=== PATIENT | male | born 1955 | race Caucasian/White ===

== ENCOUNTER → 2017-02-17 10:59 | Outpatient (CLI) | payer MEDICARE, MEDICAID, SELFPAY ==
--- NOTE | 2017-02-17 11:36 | XR_ITS ---
XR chest 2V HISTORY: ITS.REASON: enlarged lympnode on left clavicle ORDERING PHYSICIAN: Basim Sheth PATIENT AGE: 61 years COMPARISON: 01/19/2017 FINDINGS: The cardiomediastinal silhouette and pulmonary vascularity are within normal limits. The lungs are clear without infiltrates, suspicious nodules, or pleural effusions. There is some increased density noted over the left upper quadrant medially probably due to summation artifact No acute bony abnormalities. IMPRESSION: No acute finding CT may be of further value for lymphadenopathy of clinically warranted
[2017-02-17 13:57] LABS: Basophils % 0.7 % (0.1-2.0); Eosinophils # 0.3 K/mm3 (0.0-0.4); Eosinophils % 5.5 % (0.1-12.0); Hematocrit 48.6 % (42.0-52.0); Lymphocytes # 2.2 K/mm3 (0.7-4.5); Lymphocytes % 39.4 K/mm3 (10-50); Mean Corpuscular HGB Conc 32.9 g/dL (31.8-35.4); Mean Corpuscular Hemoglobin 27.9 pg (27.0-31.2); Mean Corpuscular Volume 84.9 fl (80-94); Mean Platelet Volume 11.1 fl (7.4-10.4); Monocytes # 0.4 K/mm3 (0.1-1.0); Neutrophils # 2.6 K/mm3 (1.8-7.8); Neutrophils % 47.4 % (37.0-80.0); Platelet Count 192 K/mm3 (142-424); Red Blood Count 5.73 M/mm3 (4.60-6.20); Red Cell Distribution Width 13.7 % (11.5-17.5); White Blood Count 5.6 K/mm3 (4.8-10.8)
[2017-02-17 14:18] LABS: Alanine Aminotransferase 18 U/L (12-78); Albumin/Globulin Ratio 1.3 (1.1-1.8); Alkaline Phosphatase 83 U/L (46-116); Anion Gap 14.8 mEq/L (5-15); Aspartate Amino Transferase 17 U/L (15-37); Bilirubin,Total 0.5 mg/dL (0.2-1.0); Blood Urea Nitrogen 8 mg/dL (7-18); Calcium 9.1 mg/dL (8.5-10.1); Carbon Dioxide 24 mmol/L (21.0-32.0); Chloride 103 mmol/L (98-107); Chol/HDL Ratio 4.4 (1-3.5); Cholesterol 176 mg/dL (140-200); Creatinine,Serum 1.19 mg/dL (0.70-1.30); Estimated Glomerular Filt Rate > 60 ml/min (>60); GFR (African American) > 60 ML/MIN (>60); Glucose 138 mg/dL (74-106); HDL Cholesterol 40 mg/dL (27-67); LDL Cholesterol 85 mg/dL (0-130); Potassium 3.8 mmoL/L (3.5-5.1); Sodium 138 mmol/L (136-145); Triglycerides 255 mg/dL (30-200); VLDL Cholesterol 51 mg/dL (0-40)
== END ==
PROVIDERS: PCP Nurse Practitioner Family; Visit Provider Nurse Practitioner Family
DX: E03.9 Hypothyroidism, unspecified (principal); Z09 Encounter for follow-up examination after completed treatment for conditions other than malignant neoplasm; E78.5 Hyperlipidemia, unspecified; R59.1 Generalized enlarged lymph nodes
CPT/HCPCS: 71046; 80053; 80061; 84439; 84443; 85025

== ENCOUNTER → 2017-05-19 12:00 | Outpatient (CLI) | payer MEDICARE, MEDICAID, SELFPAY ==
[2017-05-19 14:32] LABS: Hemoglobin A1C 6.2 % (0.0-7.0)
[2017-05-19 15:09] LABS: Free T4 (Free Thyroxine) 1.39 ng/dl (0.76-1.46); Thyroid Stimulating Hormone 1.65 uIU/ml (0.358-3.740)
== END ==
PROVIDERS: Visit Provider Nurse Practitioner Family
DX: R73.01 Impaired fasting glucose (principal); E03.9 Hypothyroidism, unspecified
CPT/HCPCS: 36415; 83036; 84439; 84443

== ENCOUNTER → 2017-05-27 09:41 | Outpatient (CLI) | payer MEDICARE, MEDICAID, SELFPAY ==
--- NOTE | 2017-05-27 09:43 | US_ITS ---
US thyroid COMPARISON: None HISTORY: Difficulty swallowing for 2 months TECHNIQUE: Targeted ultrasound the thyroid FINDINGS: The isthmus of the gland appears normal measuring 0.3 cm in width. The right lobe measures 2.5 x 2.0 x 4.1 cm. There is an isoechoic solid nodule upper pole right lobe measures 1.4 x 1.1 x 1.5 cm. There is a complex but primarily solid nodule posterior aspect of the mid pole right lobe measuring 2.3 x 1.4 x 1.5 cm. This could in fact represent the parathyroid gland in view of its location. The left lobe measures 2.2 x 1.5 x 3.9 cm. There is a diffusely heterogenic appearance to the left lobe with multiple small cystic-appearing areas IMPRESSION: Mild to borderline enlarged thyroid gland with multinodular appearance, question parathyroid gland versus complex solid nodule right lobe.
== END ==
PROVIDERS: Family Provider Nurse Practitioner Family; PCP Nurse Practitioner Family; Visit Provider Nurse Practitioner Family
DX: E04.9 Nontoxic goiter, unspecified (principal)
CPT/HCPCS: 76536

== ENCOUNTER → 2017-06-09 16:08 | Outpatient (CLI) | payer MEDICARE, MEDICAID, SELFPAY ==
[2017-06-11 20:12] LABS: Calcium, Ionized 5.3 mg/dL (4.5-5.6); Parathyroid Hormone Intact 39 pg/mL (15-65); Thyroid Peroxidase Antibodies 479 IU/mL (0-34)
[2017-06-15 06:12] LABS: Calcitonin 3.6 pg/mL (0.0-8.4)
[2017-06-15 06:14] LABS: Thyroid Stimulating Immunoglob <0.10 IU/L (0.00-0.55)
== END ==
PROVIDERS: Visit Provider Otolaryngology
DX: E04.1 Nontoxic single thyroid nodule (principal); E04.9 Nontoxic goiter, unspecified; R13.10 Dysphagia, unspecified
CPT/HCPCS: 36415; 82308; 82330; 83520; 83970; 86376

== ENCOUNTER → 2017-06-17 09:50 | Outpatient (CLI) | payer MEDICARE, MEDICAID, SELFPAY ==
--- NOTE | 2017-06-17 09:51 | FL_ITS ---
EXAM: Barium swallow/esophagram. INDICATION: ITS.REASON: diff swallowing x3 mths ORDERING PHYSICIAN: Richie Nelson MD PATIENT AGE: 61 years TECHNIQUE: In the upright position the patient was observed to swallow barium in both the AP and lateral view. The cervical esophagus was examined under fluoroscopy with images obtained. The patient was then placed prone in the right anterior oblique position and was observed to swallow barium with Valsalva technique . FLUOROSCOPY TIME: 42 seconds FINDINGS: The cervical esophagus is midline. Posterior fixation device is noted at C5-C6 at the facets. No esophageal mass or mucosal body evident. There is a small sliding hiatal hernia with a non constricting Schatzki's ring. Along the dorsal aspect of the Schatzki's ring there is a small area of pulling of contrast. This could be related to a small shallow ulcer. IMPRESSION: 1. Small sliding hiatal hernia with possible small shallow ulcer along the posterior aspect just distal to the Schatzki's ring. Upper endoscopy may confirm.
== END ==
PROVIDERS: Family Provider Nurse Practitioner Family; PCP Nurse Practitioner Family; Visit Provider Otolaryngology
DX: R13.10 Dysphagia, unspecified (principal)
CPT/HCPCS: 74220

== ENCOUNTER → 2017-06-20 07:46 | Outpatient (CLI) | payer MEDICARE, MEDICAID, SELFPAY ==
--- NOTE | 2017-06-20 07:48 | US_ITS ---
US biopsy guidance, US thyroid, US organ site (thyroid) Ordering Physician: Richie Nelson MD Patient Age: 61 years: Male HISTORY: ITS.REASON: multi nodular goiter right Thyroid nodule TECHNIQUE: Ultrasound right lobe thyroid along with subsequent ultrasound-guided FNA biopsy mw FINDINGS AND PROCEDURE: ======= ULTRASOUND right lobe thyroid; The elongated hypoechoic mildly inhomogeneous mass is identified along the posterior aspect right lobe. On these preliminary images it appears to be quite long measuring just over 3 cm in length X up to nearly 1 cm AP. Actually this appears to be similar I believe to the previous of April 2017 images (panel #36) from recent exam . There is suggestion of possible cleavage plane between the thyroid and this mass and thus it could be parathyroid nodule versus thyroid versus other etiology. .These images also determined the best approach for access to perform aspiration biopsy of this nodule. Scanning by Dr. Jesus ====== ULTRASOUND-GUIDED FNA BIOPSY nodule along posterior aspect right lobe thyroid. Following sterile preparation as well as local skin, and cautious deeper placement of Xylocaine anesthetic . I would also the patient received Xanax 1 mg and Lortab5 Prior to the procedure for comfort and mild sedation. Under ultrasound guidance the biopsy needle, was advanced to the nodule and positioned. Needle tip was observed and confirm passing with tip within nodule on each of 3 multipleFNA biopsies passes. A 25-gauge needle utilized. Adequate FNA specimen material obtained and submitted forto cytopathology. Patient tolerated procedure well. IMPRESSION: ----- 1. 3 FNA passes performed with with FNA biopsy & aspiration of the elongated thyroid nodule/ mass which resides along posterior right lobe of thyroid CYTOPATHOLOGY REPORT: Negative for malignant cells features compatible with lymphocytic thyroiditis
== END ==
PROVIDERS: Family Provider Nurse Practitioner Family; PCP Nurse Practitioner Family; Visit Provider Otolaryngology
DX: E04.1 Nontoxic single thyroid nodule (principal)
CPT/HCPCS: 10022; 76536; 76942; 88173

== ENCOUNTER → 2017-08-15 11:31 | Outpatient (REF) | payer MEDICARE, MEDICAID, SELFPAY ==
[2017-08-15 17:36] LABS: Basophils % 0.6 % (0.1-2.0); Eosinophils # 0.3 K/mm3 (0.0-0.4); Eosinophils % 4.6 % (0.1-12.0); Hematocrit 45.4 % (42.0-52.0); Hemoglobin 14.5 g/dL (14.1-18.0); Lymphocytes # 1.9 K/mm3 (0.7-4.5); Lymphocytes % 34.7 K/mm3 (10-50); Mean Corpuscular HGB Conc 31.9 g/dL (31.8-35.4); Mean Corpuscular Volume 84.7 fl (80-94); Mean Platelet Volume 11.3 fl (7.4-10.4); Monocytes # 0.3 K/mm3 (0.1-1.0); Monocytes % 5.8 % (1.7-9.3); Neutrophils % 54.3 % (37.0-80.0); Platelet Count 175 K/mm3 (142-424); Red Blood Count 5.36 M/mm3 (4.60-6.20); Red Cell Distribution Width 13.5 % (11.5-17.5); White Blood Count 5.5 K/mm3 (4.8-10.8)
[2017-08-15 18:24] LABS: Alanine Aminotransferase 21 U/L (12-78); Albumin Level 3.8 gm/dL (3.4-5.0); Albumin/Globulin Ratio 1.2 (1.1-1.8); Alkaline Phosphatase 77 U/L (46-116); Aspartate Amino Transferase 18 U/L (15-37); Bilirubin,Total 0.4 mg/dL (0.2-1.0); Blood Urea Nitrogen 12 mg/dL (7-18); Calcium 8.6 mg/dL (8.5-10.1); Carbon Dioxide 29 mmol/L (21.0-32.0); Chloride 105 mmol/L (98-107); Chol/HDL Ratio 4.1 (1-3.5); Cholesterol 143 mg/dL (140-200); Estimated Glomerular Filt Rate 68 ml/min (>60); Free T4 (Free Thyroxine) 1.31 ng/dl (0.76-1.46); GFR (African American) 82 ML/MIN (>60); Globulin 3.1 gm/dl (1.3-3.2); Glucose 131 mg/dL (74-106); HDL Cholesterol 35 mg/dL (27-67); LDL Cholesterol 70 mg/dL (0-130); Sodium 140 mmol/L (136-145); Thyroid Stimulating Hormone 1.12 uIU/ml (0.358-3.740); Total Protein,Serum 6.9 gm/dL (6.4-8.2); Triglycerides 191 mg/dL (30-200); VLDL Cholesterol 38 mg/dL (0-40)
== END ==
LOC: LAB 11:31
PROVIDERS: Visit Provider Nurse Practitioner Family
DX: E04.9 Nontoxic goiter, unspecified (principal); E78.5 Hyperlipidemia, unspecified
CPT/HCPCS: 80053; 80061; 84439; 84443; 85025

== ENCOUNTER → 2017-08-22 06:57 | Outpatient (CLI) | payer MEDICARE, MEDICAID, SELFPAY ==
[2017-08-22 08:33] LABS: Hemoglobin A1C 6.1 % (0.0-7.0)
== END ==
PROVIDERS: Visit Provider Nurse Practitioner Family
DX: R73.09 Other abnormal glucose (principal)
CPT/HCPCS: 36415; 83036

== ENCOUNTER → 2017-11-11 11:17 | Outpatient (CLI) | payer MEDICARE, MEDICAID, SELFPAY ==
[2017-11-11 11:47] LABS: Basophils # 0.1 K/mm3 (0-0.2); Basophils % 0.9 % (0.1-2.0); Eosinophils # 0.2 K/mm3 (0.0-0.4); Eosinophils % 3.8 % (0.1-12.0); Hematocrit 48.2 % (42.0-52.0); Hemoglobin 15.7 g/dL (14.1-18.0); Lymphocytes % 34.3 K/mm3 (10-50); Mean Corpuscular HGB Conc 32.7 g/dL (31.8-35.4); Mean Corpuscular Hemoglobin 27.8 pg (27.0-31.2); Mean Corpuscular Volume 85.2 fl (80-94); Mean Platelet Volume 9.9 fl (7.4-10.4); Monocytes # 0.4 K/mm3 (0.1-1.0); Monocytes % 7.3 % (1.7-9.3); Neutrophils # 3.1 K/mm3 (1.8-7.8); Neutrophils % 53.7 % (37.0-80.0); Platelet Count 181 K/mm3 (142-424); Red Blood Count 5.66 M/mm3 (4.60-6.20); Red Cell Distribution Width 13.7 % (11.5-17.5); White Blood Count 5.8 K/mm3 (4.8-10.8)
[2017-11-11 13:03] LABS: Alanine Aminotransferase 21 U/L (12-78); Albumin/Globulin Ratio 1.2 (1.1-1.8); Alkaline Phosphatase 90 U/L (46-116); Aspartate Amino Transferase 16 U/L (15-37); Bilirubin,Total 0.5 mg/dL (0.2-1.0); Blood Urea Nitrogen 14 mg/dL (7-18); Calcium 9.1 mg/dL (8.5-10.1); Carbon Dioxide 30 mmol/L (21.0-32.0); Chloride 103 mmol/L (98-107); Chol/HDL Ratio 3.9 (1-3.5); Cholesterol 148 mg/dL (140-200); Estimated Glomerular Filt Rate 61 ml/min (>60); GFR (African American) 74 ML/MIN (>60); Globulin 3.3 gm/dl (1.3-3.2); Glucose 139 mg/dL (74-106); HDL Cholesterol 38 mg/dL (27-67); LDL Cholesterol 54 mg/dL (0-130); Sodium 139 mmol/L (136-145); T4 (Thyroxine) 11.8 ug/dl (4.7-13.3); Thyroid Stimulating Hormone 2.99 uIU/ml (0.358-3.740); Total Protein,Serum 7.3 gm/dL (6.4-8.2); Triglycerides 278 mg/dL (30-200); VLDL Cholesterol 56 mg/dL (0-40)
[2017-11-11 14:49] LABS: Erythrocyte Sedimentation Rate 12 mm/hr (0-20)
[2017-11-11 15:14] LABS: Hemoglobin A1C 6.5 % (0.0-7.0)
[2017-11-15 02:08] LABS: 1,25-Dihydroxy, Vitamin D-2 25 pg/mL (.)
[2017-11-15 06:12] LABS: 1,25 Dihydroxy Vitamin D 50 pg/mL (.); 1,25-Dihydroxy, Vitamin D-3 25 pg/mL (.)
== END ==
PROVIDERS: PCP Nurse Practitioner Family; Visit Provider Nurse Practitioner Family
DX: E03.9 Hypothyroidism, unspecified (principal); R53.83 Other fatigue; E78.2 Mixed hyperlipidemia; R73.9 Hyperglycemia, unspecified
CPT/HCPCS: 36415; 80053; 80061; 82652; 83036; 84436; 84443; 85025; 85651

== ENCOUNTER → 2018-01-02 12:58 | Outpatient (CLI) | payer MEDICARE, MEDICAID, SELFPAY ==
--- NOTE | 2018-01-02 12:59 | US_ITS ---
. ULTRASOUND THYROID PROCEDURE: Multiple sagittal & transverse ultrasound images of the thyroid. HISTORY: Follow-up may biopsy COMPARISON : today's study primarily primarily compared to May 2017 study . There is also interval right thyroid biopsy 06/20/2017 utilized ----- FINDINGS: Heterogeneous gland throughout compatible with thyroiditis. Multiple scattered small hypoechoic areas stippled throughout. Difficult to evaluate for any specific nodules. RIGHT LOBE: Measures 4.3 cm length x 2 cm wide x 2 cm AP. Nodule A: . Solid nodule upper pole anteriorly. 2.1 x 1.1 cm similar to previous study Nodule B: Hypoechoic mildly inhomogeneous solid overlying posterior margin right lobe. This long nodule measures 2.9 cm in length X 1 cm AP.. It appears similar in size and appearance to previous studies including biopsy exam. Prior June 2017Biopsy confirmed this to be an area of is area of lymphocytic thyroiditis LEFT LOBE: 3.8 cm x 1.8 cm x 1.9 cm Nodule A: Slightly heterogeneous solid nodule measuring up to 1.77 cm x 1.1 cm upper pole . Nodule B: Solid nodule posterior mid left lobe. 1.2 x 0.96 cm. ISTHMUS: 4.5 mm AP. Similar to previous study the tibia small 3 mm nodule just left of midline at the isthmus noted on this study. Subtle observation. IMPRESSION Heterogeneous generous size gland.. Course heterogeneous appearance compatible with thyroiditis. Bilateral thyroid nodules again evident... The nodule upper pole Largest elongated nodule along the posterior right lobe appears stable. Prior biopsy here June 2017, confirmed this to be an area of is area of lymphocytic thyroiditis. . Ongoing follow-up suggested
== END ==
PROVIDERS: PCP Nurse Practitioner Family; Visit Provider Otolaryngology
DX: E06.9 Thyroiditis, unspecified (principal)
CPT/HCPCS: 76536

== ENCOUNTER → 2018-01-13 08:38 | Outpatient (CLI) | payer MEDICARE, MEDICAID, SELFPAY ==
--- NOTE | 2018-01-13 08:39 | FL_ITS ---
EXAM: Barium swallow/esophagram. INDICATION: Goiter, dysphasia ITS.REASON: Dysphagia ORDERING PHYSICIAN: Richie Nelson MD PATIENT AGE: 62 years COMPARISON: None TECHNIQUE: In the upright position the patient was observed to swallow barium in both the AP and lateral view. The cervical esophagus was examined under fluoroscopy with images obtained. The patient was then placed prone in the right anterior oblique position and was observed to swallow barium with Valsalva technique . FLUOROSCOPY TIME: 45 seconds FINDINGS: There was no evidence of aspiration. There was normal peristalsis. No filling defects or mucosal abnormalities. No masses or strictures. The cervical esophagus is not deviated with no obvious external compression. There are postsurgical changes with prior posterior fusion of C5 and C6. There is a small sliding hiatal hernia. There remains some mild irregularity the posterior aspect of the esophagus distally. This may be slightly less apparent compared to the previous exam. IMPRESSION: 1. Small sliding hiatal hernia. 2. The pooling along the posterior distal aspect of the esophagus is once again noted and may be slightly less apparent. A small shallow ulcer is a consideration
== END ==
PROVIDERS: PCP Otolaryngology; Visit Provider Otolaryngology
DX: R13.10 Dysphagia, unspecified (principal)
CPT/HCPCS: 74220

== ENCOUNTER → 2018-02-13 10:32 | Outpatient (POV) | payer MEDICARE, MEDICAID, SELFPAY | PROVIDERS: Visit Provider Nurse Practitioner Acute Care | DX: Z00.00 Encounter for general adult medical examination without abnormal findings (principal) ==

== ENCOUNTER → 2018-04-07 12:39 | Outpatient (CLI) | payer MEDICARE, MEDICAID, SELFPAY ==
--- NOTE | 2018-04-07 12:44 | US_ITS ---
US thyroid HISTORY: ITS.REASON: Goiter ORDERING PHYSICIAN: Richie Nelson MD PATIENT AGE: 62 years Comparison: 01/02/2018 FINDINGS: The right lobe is 3.6 x 1.5 x 1.6 cm. There is heterogeneous echogenicity. 19 x 10 mm vague heterogeneous nodular area is present in the upper pole similar to the previous exam. There is a hypoechoic nodular area measuring 2.5 x 0.8 cm on the posterior aspect of the upper pole. This was previously biopsied and is unchanged. The left lobe is 3.3 x 1.8 x 1.7 cm. A vague 13 mm heterogeneous areas present in the upper pole not significant changed. An additional vague 8 mm area of decreased echogenicity is present in the mid polar region posteriorly unchanged. A 6 mm slightly hyperechoic nodular areas noted inferiorly unchanged. IMPRESSION: Stable sonographic appearance of the thyroid gland with bilateral nodules as described above
== END ==
PROVIDERS: PCP Nurse Practitioner Family; Visit Provider Otolaryngology
DX: E04.9 Nontoxic goiter, unspecified (principal)
CPT/HCPCS: 76536

== ENCOUNTER → 2018-05-11 10:44 | Outpatient (CLI) | payer MEDICARE, MEDICAID, SELFPAY ==
--- NOTE | 2018-05-11 10:47 | NVE_ITS ---
Venous Exam Indications: 729.5 Pain in limb. IMPRESSIONS 1. There is no evidence of significant Reflux. 2. No evidence of deep or superficial vein thrombosis involving the right lower extremity History: Right lower extremity pain. Denies trauma. Had a colonoscopy and endoscopy 03/2018. Hyperlipidemia. Right lower extremity venous duplex evaluation. Doppler flow study including spectral analysis, color and malin scale imaging. Location: Vascular laboratory. Patient status: Outpatient. CRITICAL FINDINGS - Reported to: Dr. Gonsalo Partida office - Read back and verified. - 05/11/18 - 10:45 - RLE negative for DVT or SVT Tables: Venous flow and imaging: + +-------+ + Location Overall Flow properties + +-------+ + Right common femoral Patent Normal phasicity; spontaneous; normal augmentation; compressible + +-------+ + Right saphenofemoral junction Patent Compressible + +-------+ + Right profunda femoral Patent Compressible + +-------+ + Right femoral Patent Normal phasicity; spontaneous; normal augmentation; compressible + +-------+ + Right greater saphenous Patent Normal phasicity; spontaneous; normal augmentation; compressible + +-------+ + Right popliteal Patent Normal phasicity; spontaneous; normal augmentation; compressible + +-------+ + Right posterior tibial Patent Compressible + +-------+ + Right peroneal Patent Compressible + +-------+ + Right gastrocnemius Patent Compressible + +-------+ + Right soleal Patent Compressible + +-------+ + (Report amended ) Electronically signed by: Dallas Jesus [id number]
== END ==
PROVIDERS: PCP Emergency Medicine; Visit Provider Nurse Practitioner Family
DX: R60.0 Localized edema (principal)
CPT/HCPCS: 93971

== ENCOUNTER → 2018-08-04 13:06 | Outpatient (CLI) | payer MEDICARE, MEDICAID, SELFPAY ==
[2018-08-04 13:32] LABS: Basophils % 0.6 % (0.1-2.0); Eosinophils # 0.2 K/mm3 (0.0-0.4); Eosinophils % 4.4 % (0.1-12.0); Hematocrit 43.5 % (42.0-52.0); Hemoglobin 13.9 g/dL (14.1-18.0); Lymphocytes # 1.8 K/mm3 (0.7-4.5); Lymphocytes % 32.6 % (10-50); Mean Corpuscular Hemoglobin 26.6 pg (27.0-31.2); Mean Corpuscular Volume 83.2 fl (80-94); Mean Platelet Volume 10.3 fl (7.4-10.4); Monocytes # 0.5 K/mm3 (0.1-1.0); Monocytes % 8.2 % (1.7-9.3); Neutrophils % 54.3 % (37.0-80.0); Platelet Count 164 K/mm3 (142-424); Red Blood Count 5.23 M/mm3 (4.60-6.20); Red Cell Distribution Width 13.4 % (11.5-17.5); White Blood Count 5.5 K/mm3 (4.8-10.8)
[2018-08-04 14:28] LABS: Alanine Aminotransferase 22 U/L (12-78); Albumin Level 3.7 gm/dL (3.4-5.0); Albumin/Globulin Ratio 1.1 (1.1-1.8); Alkaline Phosphatase 79 U/L (46-116); Anion Gap 15.8 mEq/L (5-15); Aspartate Amino Transferase 20 U/L (15-37); Bilirubin,Total 0.6 mg/dL (0.2-1.0); Blood Urea Nitrogen 12 mg/dL (7-18); Calcium 8.9 mg/dL (8.5-10.1); Carbon Dioxide 27 mmol/L (21.0-32.0); Chloride 104 mmol/L (98-107); Chol/HDL Ratio 4.5 (1-3.5); Cholesterol 143 mg/dL (140-200); Creatinine,Serum 1.27 mg/dL (0.70-1.30); Estimated Glomerular Filt Rate 57 ml/min (>60); GFR (African American) 70 ML/MIN (>60); Globulin 3.3 gm/dl (1.3-3.2); Glucose 152 mg/dL (74-106); HDL Cholesterol 32 mg/dL (27-67); LDL Cholesterol 67 mg/dL (0-130); Potassium 3.8 mmoL/L (3.5-5.1); Sodium 143 mmol/L (136-145); T4 (Thyroxine) 11.4 ug/dl (4.7-13.3); Triglycerides 219 mg/dL (30-200); VLDL Cholesterol 44 mg/dL (0-40)
[2018-08-06 21:40] LABS: Vitamin D 25 Hydroxy 75.7 ng/mL (30.0-100.0)
== END ==
PROVIDERS: Visit Provider Nurse Practitioner Family
DX: E04.9 Nontoxic goiter, unspecified (principal); E78.5 Hyperlipidemia, unspecified; R53.83 Other fatigue
CPT/HCPCS: 80053; 80061; 82652; 84436; 84443; 85025

== ENCOUNTER → 2018-08-10 07:11 | Outpatient (CLI) | payer MEDICARE, MEDICAID, SELFPAY ==
[2018-08-10 08:31] LABS: Hemoglobin A1C 7.7 % (0.0-7.0)
== END ==
PROVIDERS: Visit Provider Physician Assistant
DX: R73.9 Hyperglycemia, unspecified (principal)
CPT/HCPCS: 36415; 83036

== ENCOUNTER → 2018-08-29 12:59 | Outpatient (CLI) | payer MEDICARE, MEDICAID, SELFPAY ==
[2018-08-31 20:02] LABS: PSA, Free 0.38 ng/mL; Prostate Specific Ag 2.3 ng/mL (0.0-4.0)
== END ==
PROVIDERS: Visit Provider Urology
DX: Z12.5 Encounter for screening for malignant neoplasm of prostate (principal); R97.20 Elevated prostate specific antigen [PSA]
CPT/HCPCS: 36415; 84153; 84154

== ENCOUNTER → 2018-09-04 14:43 | Outpatient (CLI) | payer MEDICARE, MEDICAID, SELFPAY ==
[2018-09-04 16:05] VITALS: BMI 29.0
== END ==
PROVIDERS: PCP Nurse Practitioner Family; Visit Provider Nurse Practitioner Family
DX: Z71.3 Dietary counseling and surveillance (principal); E11.9 Type 2 diabetes mellitus without complications
CPT/HCPCS: 97802

== ENCOUNTER → 2018-10-26 15:07 | Outpatient (CLI) | payer MEDICARE, MEDICAID, SELFPAY ==
--- NOTE | 2018-10-26 15:08 | US_ITS ---
PROCEDURE: US THYROID CLINICAL INDICATION: Enlarged thyroid COMPARISON: THY US thyroid from 04/07/2018 FINDINGS: The right lobe is 4.3 x 2.5 x 1.6 cm. Heterogeneous echogenicity once again noted with a 2 cm nodular area in the upper pole on the right not significantly changed. In the mid polar region there is a 1.5 cm mixed hypoechoic nodule unchanged. The left lobe is 3.7 x 1.9 x 1.6 cm with an ill-defined 1.3 cm nodule in the upper pole unchanged. A 1 cm ill-defined nodular area is noted in the mid polar region unchanged. A 7 mm slightly hyperechoic nodule in the lower pole unchanged IMPRESSION: No change in the multiple thyroid nodules with diffuse heterogeneous echogenicity of the thyroid gland Dictated by: Kevin Askew MD 10/26/2018 20:17 Electronically signed by Kevin Askew MD in [place] 10/26/2018 20:17
== END ==
PROVIDERS: PCP Nurse Practitioner Family; Visit Provider Otolaryngology
DX: E04.9 Nontoxic goiter, unspecified (principal)
CPT/HCPCS: 76536

== ENCOUNTER → 2018-10-27 13:37 | Outpatient (CLI) | payer MEDICARE, MEDICAID, SELFPAY ==
[2018-10-27 14:29] LABS: Alanine Aminotransferase 20 U/L (12-78); Albumin/Globulin Ratio 1.3 (1.1-1.8); Alkaline Phosphatase 60 U/L (46-116); Anion Gap 13.4 mEq/L (5-15); Aspartate Amino Transferase 18 U/L (15-37); Bilirubin,Total 0.4 mg/dL (0.2-1.0); Blood Urea Nitrogen 14 mg/dL (7-18); Calcium 9.2 mg/dL (8.5-10.1); Carbon Dioxide 29 mmol/L (21.0-32.0); Chloride 104 mmol/L (98-107); Chol/HDL Ratio 3.9 (1-3.5); Cholesterol 147 mg/dL (140-200); Creatinine,Serum 1.06 mg/dL (0.70-1.30); Estimated Glomerular Filt Rate 71 ml/min (>60); GFR (African American) 85 ML/MIN (>60); Glucose 133 mg/dL (74-106); HDL Cholesterol 38 mg/dL (27-67); LDL Cholesterol 80 mg/dL (0-130); Potassium 4.4 mmoL/L (3.5-5.1); Sodium 142 mmol/L (136-145); T4 (Thyroxine) 13.5 ug/dl (4.7-13.3); Thyroid Stimulating Hormone 1.89 uIU/ml (0.358-3.740); Triglycerides 144 mg/dL (30-200); VLDL Cholesterol 29 mg/dL (0-40)
[2018-10-27 14:31] LABS: Basophils # 0.1 K/mm3 (0-0.2); Basophils % 0.9 % (0.1-2.0); Eosinophils # 0.5 K/mm3 (0.0-0.4); Eosinophils % 8.3 % (0.1-12.0); Hematocrit 43.7 % (42.0-52.0); Hemoglobin 14.2 g/dL (14.1-18.0); Lymphocytes # 2.4 K/mm3 (0.7-4.5); Lymphocytes % 37.5 % (10-50); Mean Corpuscular HGB Conc 32.6 g/dL (31.8-35.4); Mean Corpuscular Hemoglobin 28.7 pg (27.0-31.2); Mean Corpuscular Volume 87.9 fl (80-94); Mean Platelet Volume 11.9 fl (7.4-10.4); Monocytes # 0.4 K/mm3 (0.1-1.0); Monocytes % 6.9 % (1.7-9.3); Neutrophils # 2.9 K/mm3 (1.8-7.8); Neutrophils % 46.4 % (37.0-80.0); Platelet Count 173 K/mm3 (142-424); Red Blood Count 4.97 M/mm3 (4.60-6.20); Red Cell Distribution Width 13.5 % (11.5-17.5); White Blood Count 6.3 K/mm3 (4.8-10.8)
[2018-10-27 15:37] LABS: Hemoglobin A1C 6.4 % (0.0-7.0)
[2018-10-29 04:21] LABS: Microalbumin, Urine 5.9 ug/mL (Not Estab.)
== END ==
PROVIDERS: Visit Provider Nurse Practitioner Family
DX: E11.9 Type 2 diabetes mellitus without complications (principal); Z79.84 Long term (current) use of oral hypoglycemic drugs
CPT/HCPCS: 80053; 80061; 82043; 82652; 83036; 84436; 84443; 85025

== ENCOUNTER → 2019-01-24 14:48 | Outpatient (CLI) | payer MEDICARE, MEDICAID, SELFPAY ==
[2019-01-24 15:11] LABS: Basophils % 0.7 % (0.1-2.0); Eosinophils # 0.5 K/mm3 (0.0-0.4); Hematocrit 47.1 % (42.0-52.0); Lymphocytes # 1.9 K/mm3 (0.7-4.5); Lymphocytes % 29.1 % (10-50); Mean Corpuscular HGB Conc 31.8 g/dL (31.8-35.4); Mean Corpuscular Hemoglobin 28.4 pg (27.0-31.2); Mean Corpuscular Volume 89.4 fl (80-94); Mean Platelet Volume 11.2 fl (7.4-10.4); Monocytes # 0.4 K/mm3 (0.1-1.0); Neutrophils # 3.6 K/mm3 (1.8-7.8); Neutrophils % 56.2 % (37.0-80.0); Platelet Count 177 K/mm3 (142-424); Red Blood Count 5.27 M/mm3 (4.60-6.20); Red Cell Distribution Width 13.5 % (11.5-17.5); White Blood Count 6.4 K/mm3 (4.8-10.8)
[2019-01-24 15:48] LABS: Hemoglobin A1C 6.4 % (0.0-7.0)
[2019-01-24 16:38] LABS: Alanine Aminotransferase 18 U/L (12-78); Albumin Level 4.1 gm/dL (3.4-5.0); Albumin/Globulin Ratio 1.4 (1.1-1.8); Alkaline Phosphatase 58 U/L (46-116); Anion Gap 15.4 mEq/L (5-15); Aspartate Amino Transferase 15 U/L (15-37); Bilirubin,Total 0.3 mg/dL (0.2-1.0); Blood Urea Nitrogen 12 mg/dL (7-18); Calcium 8.7 mg/dL (8.5-10.1); Carbon Dioxide 28 mmol/L (21.0-32.0); Chloride 105 mmol/L (98-107); Chol/HDL Ratio 3.7 (1-3.5); Cholesterol 164 mg/dL (140-200); Creatinine,Serum 1.19 mg/dL (0.70-1.30); Estimated Glomerular Filt Rate 62 ml/min (>60); GFR (African American) 75 ML/MIN (>60); Glucose 132 mg/dL (74-106); HDL Cholesterol 44 mg/dL (27-67); LDL Cholesterol 79 mg/dL (0-130); Potassium 4.4 mmoL/L (3.5-5.1); Sodium 144 mmol/L (136-145); T4 (Thyroxine) 13.9 ug/dl (4.7-13.3); Thyroid Stimulating Hormone 2.51 uIU/ml (0.358-3.740); Total Protein,Serum 7.1 gm/dL (6.4-8.2); Triglycerides 204 mg/dL (30-200); VLDL Cholesterol 41 mg/dL (0-40)
[2019-01-26 11:39] LABS: Vitamin D 25 Hydroxy 58.2 ng/mL (30.0-100.0)
== END ==
PROVIDERS: Visit Provider Nurse Practitioner Family
DX: E03.9 Hypothyroidism, unspecified (principal); E11.9 Type 2 diabetes mellitus without complications; Z79.84 Long term (current) use of oral hypoglycemic drugs
CPT/HCPCS: 80053; 80061; 82652; 83036; 84436; 84443; 85025

== ENCOUNTER → 2019-03-02 10:53 | Outpatient (CLI) | payer MEDICARE, MEDICAID, SELFPAY ==
[2019-03-03 11:05] LABS: PSA, Free 1.01 ng/mL; Prostate Specific Ag 3.9 ng/mL (0.0-4.0)
== END ==
PROVIDERS: Visit Provider Urology
DX: Z12.5 Encounter for screening for malignant neoplasm of prostate (principal); N40.0 Benign prostatic hyperplasia without lower urinary tract symptoms
CPT/HCPCS: 84153; 84154

== ENCOUNTER → 2019-05-04 13:16 | Outpatient (CLI) | payer MEDICARE, MEDICAID, SELFPAY ==
--- NOTE | 2019-05-04 13:17 | US_ITS ---
PROCEDURE: US THYROID CLINICAL INDICATION: Goiter Follow-up nodules COMPARISON: US THYROID from 10/26/2018 FINDINGS: Right lobe: 3.8 x 1.7 x 2 cm. 14 x 8 mm heterogeneous nodule in the upper pole unchanged. There is a hypoechoic nodule posteriorly at 2 x 0.9 cm not significantly changed. There is heterogeneous Left lobe: Echogenicity of the right lobe. 3.8 x 2 x 1.6 cm. Heterogeneous area of echogenicity is present in the upper pole anteriorly at 2 x 1.1 cm and may be slightly larger compared to the previous exam somewhat difficult to evaluate due to the different imaging plane having a somewhat spongiform appearance mildly suspicious. Suggest continued six-month follow-up Isthmus: . Ill-defined hypoechoic nodules present inferiorly on the left at 1 cm unchanged. Additional findings: IMPRESSION: Bilateral thyroid nodules mostly stable. T rads category 3 mildly suspicious the nodule on the left. Continued six-month follow-up suggested Dictated by: Kevin Askew MD 05/04/2019 17:17 Electronically signed by Kevin Askew MD in [facility] 05/04/2019 17:17
== END ==
PROVIDERS: PCP Emergency Medicine; Visit Provider Otolaryngology
DX: E04.9 Nontoxic goiter, unspecified (principal)
CPT/HCPCS: 76536

== ENCOUNTER → 2019-06-27 15:18 | Outpatient (CLI) | payer MEDICARE, MEDICAID, SELFPAY ==
[2019-06-27 15:53] LABS: Basophils # 0.1 K/mm3 (0-0.2); Basophils % 0.9 % (0.1-2.0); Eosinophils # 0.5 K/mm3 (0.0-0.4); Eosinophils % 6.9 % (0.1-12.0); Hemoglobin 14.8 g/dL (14.1-18.0); Lymphocytes # 2.1 K/mm3 (0.7-4.5); Lymphocytes % 30.1 % (10-50); Mean Corpuscular HGB Conc 32.9 g/dL (31.8-35.4); Mean Corpuscular Hemoglobin 27.8 pg (27.0-31.2); Mean Corpuscular Volume 84.5 fl (80-94); Mean Platelet Volume 11.7 fl (7.4-10.4); Monocytes # 0.5 K/mm3 (0.1-1.0); Monocytes % 7.5 % (1.7-9.3); Neutrophils # 3.7 K/mm3 (1.8-7.8); Neutrophils % 54.5 % (37.0-80.0); Platelet Count 206 K/mm3 (142-424); Red Blood Count 5.32 M/mm3 (4.60-6.20); White Blood Count 6.8 K/mm3 (4.8-10.8)
[2019-06-27 15:55] LABS: Alanine Aminotransferase 14 U/L (12-78); Albumin Level 4.8 g/dl (3.5-5.0); Albumin/Globulin Ratio 1.8 (1.1-1.8); Alkaline Phosphatase 62 U/L (38-126); Anion Gap 11.7 mEq/L (5-15); Aspartate Amino Transferase 30 U/L (17-59); Bilirubin,Total 0.5 mg/dl (0.2-1.3); Blood Urea Nitrogen 16 mg/dl (9-20); Calcium 11.1 mg/dl (8.4-10.2); Carbon Dioxide 33 mmol/L (22.0-30.0); Chloride 97 mmol/L (98-107); Chol/HDL Ratio 2.8 (1-3.5); Cholesterol 144 mg/dl (140-200); Estimated Glomerular Filt Rate 75 ml/min (>60); GFR (African American) 91 ML/MIN (>60); Globulin 2.7 g/dL (1.3-3.2); Glucose 141 mg/dl (74-100); HDL Cholesterol 51 mg/dl (40-60); Potassium 4.7 mmoL/L (3.5-5.1); Sodium 137 mmol/L (136-145); Total Protein,Serum 7.5 g/dl (6.3-8.2); Triglycerides 245 mg/dl (30-150); VLDL Cholesterol 49 mg/dL (0-40)
[2019-06-27 16:25] LABS: Hemoglobin A1C 6.1 % (4.0-6.0); Thyroid Stimulating Hormone 2.66 uIU/mL (0.465-4.68)
[2019-06-29 07:38] LABS: Vitamin D 25 Hydroxy 43.4 ng/mL (30.0-100.0)
== END ==
PROVIDERS: Visit Provider Nurse Practitioner Family
DX: E11.9 Type 2 diabetes mellitus without complications (principal); R53.83 Other fatigue; Z79.84 Long term (current) use of oral hypoglycemic drugs
CPT/HCPCS: 80053; 80061; 82652; 83036; 84436; 84443; 85025

== ENCOUNTER → 2019-08-13 12:35 | Outpatient (CLI) | payer MEDICARE, MEDICAID, SELFPAY ==
--- NOTE | 2019-08-13 12:39 | US_ITS ---
PROCEDURE: US THYROID CLINICAL INDICATION: hypothyr COMPARISON: US THYROID from 05/04/2019 FINDINGS: Right lobe: A 3.8 x 1.8 x 1.6 cm. Spongiform appearing nodule upper pole 19 x 11 mm not significantly changed. Cystic nodule upper pole posteriorly at 3 x 1 cm not significantly changed Left lobe: 3.8 x 2 x 1.4 cm. 19 mm spongiform nodule upper pole unchanged Isthmus: Thickened at 15 mm Additional findings: IMPRESSION: No change multinodular goiter Dictated by: Kevin Askew MD 08/13/2019 13:21 Electronically signed by Kevin Askew MD in [facility] 08/13/2019 13:21
== END ==
PROVIDERS: PCP Nurse Practitioner Family; Visit Provider Otolaryngology
DX: E04.1 Nontoxic single thyroid nodule (principal)
CPT/HCPCS: 76536

== ENCOUNTER → 2019-10-04 16:56 | Outpatient (CLI) | payer MEDICARE, MEDICAID, SELFPAY ==
[2019-10-04 17:30] LABS: Basophils # 0.1 K/mm3 (0-0.2); Basophils % 0.9 % (0.1-2.0); Eosinophils # 0.3 K/mm3 (0.0-0.4); Eosinophils % 4.5 % (0.1-12.0); Hematocrit 45.1 % (42.0-52.0); Hemoglobin 15.1 g/dL (14.1-18.0); Lymphocytes # 2.2 K/mm3 (0.7-4.5); Lymphocytes % 36.2 % (10-50); Mean Corpuscular HGB Conc 33.5 g/dL (31.8-35.4); Mean Corpuscular Volume 86.6 fl (80-94); Mean Platelet Volume 11.3 fl (7.4-10.4); Monocytes # 0.5 K/mm3 (0.1-1.0); Monocytes % 8.3 % (1.7-9.3); Neutrophils % 50.1 % (37.0-80.0); Platelet Count 176 K/mm3 (142-424); Red Blood Count 5.21 M/mm3 (4.60-6.20); Red Cell Distribution Width 13.2 % (11.5-17.5)
[2019-10-04 17:32] LABS: Chloride 102 mmol/L (98-107); Potassium 4.3 mmoL/L (3.5-5.1); Sodium 142 mmol/L (136-145)
[2019-10-04 17:34] LABS: Alanine Aminotransferase 16 U/L (12-78); Aspartate Amino Transferase 28 U/L (17-59); Blood Urea Nitrogen 18 mg/dl (9-20); Estimated Glomerular Filt Rate 75 ml/min (>60); GFR (African American) 91 ML/MIN (>60)
[2019-10-04 17:35] LABS: Albumin Level 4.6 g/dl (3.5-5.0); Albumin/Globulin Ratio 1.6 (1.1-1.8); Alkaline Phosphatase 60 U/L (38-126); Anion Gap 15.3 mEq/L (5-15); Bilirubin,Total 0.7 mg/dl (0.2-1.3); Calcium 10.2 mg/dl (8.4-10.2); Carbon Dioxide 29 mmol/L (22.0-30.0); Chol/HDL Ratio 3.8 (1-3.5); Cholesterol 165 mg/dl (140-200); Globulin 2.8 g/dL (1.3-3.2); Glucose 145 mg/dl (74-100); HDL Cholesterol 43 mg/dl (40-60); Total Protein,Serum 7.4 g/dl (6.3-8.2); Triglycerides 258 mg/dl (30-150); VLDL Cholesterol 52 mg/dL (0-40)
[2019-10-04 17:46] LABS: Direct LDL Cholesterol 80.16 mg/dL (100-129)
[2019-10-04 17:47] LABS: Hemoglobin A1C 6.7 % (4.0-6.0)
[2019-10-14 18:47] LABS: 1,25 Dihydroxy Vitamin D 44 pg/mL (.); 1,25-Dihydroxy, Vitamin D-2 20 pg/mL (.); 1,25-Dihydroxy, Vitamin D-3 24 pg/mL (.)
== END ==
PROVIDERS: Visit Provider Nurse Practitioner Family
DX: E11.9 Type 2 diabetes mellitus without complications (principal); I10 Essential (primary) hypertension; R53.83 Other fatigue; Z79.4 Long term (current) use of insulin
CPT/HCPCS: 80053; 80061; 82652; 83036; 85025

== ENCOUNTER → 2019-11-21 13:29 | Outpatient (CLI) | payer MEDICARE, MEDICAID, SELFPAY ==
[2019-11-21 14:41] LABS: Free T4 (Free Thyroxine) 1.23 ng/dl (0.78-2.19)
[2019-11-21 16:02] LABS: Intact Parathyroid Hormone 102.7 pg/mL (7.5-53.5)
[2019-11-21 16:20] LABS: Thyroid Stimulating Hormone 3.38 uIU/mL (0.465-4.68)
[2019-11-22 15:24] LABS: Thyroid Peroxidase Antibodies 556 IU/mL (0-34)
[2019-11-22 20:16] LABS: Calcium, Ionized 4.9 mg/dL (4.5-5.6)
[2019-11-23 11:59] LABS: Thyroid Stimulating Immunoglob <0.10 IU/L (0.00-0.55)
== END ==
PROVIDERS: PCP Nurse Practitioner Family; Visit Provider Otolaryngology
DX: E04.1 Nontoxic single thyroid nodule (principal); E03.9 Hypothyroidism, unspecified; E04.9 Nontoxic goiter, unspecified
CPT/HCPCS: 36415; 82330; 83970; 84439; 84443; 84445; 86376

== ENCOUNTER → 2019-11-28 12:47 | Outpatient (CLI) | payer MEDICARE, MEDICAID, SELFPAY ==
--- NOTE | 2019-11-28 12:48 | US_ITS ---
PROCEDURE: US THYROID CLINICAL INDICATION: thyroid nod Follow-up thyroid nodules COMPARISON: US US THYROID from 08/13/2019 FINDINGS: Right lobe: The right lobe is 2.5 x 2.6 x 1.6 cm. Left lobe: 3.7 x 1.9 x 1.5 cm Isthmus: Thickened at 9 mm Additional findings: In the upper pole there is a 17 x 12 mm solid-appearing nodule unchanged. In the mid polar region there is a 2.3 x 0.9 cm mixed solid and cystic appearing nodule unchanged In the upper pole on the left there is a 17 mm solid-appearing nodule unchanged. Hypoechoic area in the mid polar region on the left at 11 mm unchanged IMPRESSION: No change benign-appearing bilateral thyroid nodules Dictated by: Kevin Askew MD 11/28/2019 18:08 Kevin Askew MD in [facility] 11/28/2019 18:08
== END ==
PROVIDERS: PCP Nurse Practitioner Family; Visit Provider Otolaryngology
DX: E03.9 Hypothyroidism, unspecified (principal); E04.9 Nontoxic goiter, unspecified
CPT/HCPCS: 36415; 76536; 83970

== ENCOUNTER → 2019-11-28 13:58 | Outpatient (CLI) | payer MEDICARE, MEDICAID, SELFPAY ==
[2019-11-28 16:44] LABS: Intact Parathyroid Hormone 43.7 pg/mL (7.5-53.5)
== END ==
PROVIDERS: PCP Nurse Practitioner Family; Visit Provider Otolaryngology
DX: E04.9 Nontoxic goiter, unspecified (principal); E03.9 Hypothyroidism, unspecified; E04.1 Nontoxic single thyroid nodule
CPT/HCPCS: 36415; 83970

== ENCOUNTER → 2020-01-03 18:12 | Outpatient (CLI) | payer MEDICARE, MEDICAID, SELFPAY ==
[2020-01-03 19:51] LABS: Microalbumin/Creatinine Ratio 12.9
[2020-01-03 19:54] LABS: Creatinine,Urine Random 168 mg/dL (Not Estab.)
== END ==
PROVIDERS: Visit Provider Nurse Practitioner Family
DX: E11.9 Type 2 diabetes mellitus without complications (principal); Z79.84 Long term (current) use of oral hypoglycemic drugs
CPT/HCPCS: 82043; 82570

== ENCOUNTER → 2020-02-27 14:16 | Outpatient (CLI) | payer MEDICARE, MEDICAID, SELFPAY ==
[2020-02-27 14:31] LABS: Basophils # 0.1 K/mm3 (0-0.2); Basophils % 0.8 % (0.1-2.0); Eosinophils # 0.3 K/mm3 (0.0-0.4); Eosinophils % 4.9 % (0.1-12.0); Hemoglobin 15.7 g/dL (14.1-18.0); Lymphocytes # 2.2 K/mm3 (0.7-4.5); Lymphocytes % 34.1 % (10-50); Mean Corpuscular HGB Conc 33.4 g/dL (31.8-35.4); Mean Corpuscular Hemoglobin 28.7 pg (27.0-31.2); Mean Corpuscular Volume 85.8 fl (80-94); Mean Platelet Volume 10.7 fl (7.4-10.4); Monocytes # 0.5 K/mm3 (0.1-1.0); Neutrophils # 3.5 K/mm3 (1.8-7.8); Neutrophils % 53.2 % (37.0-80.0); Platelet Count 186 K/mm3 (142-424); Red Blood Count 5.48 M/mm3 (4.60-6.20); White Blood Count 6.6 K/mm3 (4.8-10.8)
[2020-02-27 14:36] LABS: Alanine Aminotransferase 19 U/L (12-78); Albumin Level 4.6 g/dl (3.5-5.0); Albumin/Globulin Ratio 1.6 (1.1-1.8); Alkaline Phosphatase 67 U/L (38-126); Anion Gap 13.5 mEq/L (5-15); Aspartate Amino Transferase 34 U/L (17-59); Bilirubin,Total 0.6 mg/dl (0.2-1.3); Blood Urea Nitrogen 12 mg/dl (9-20); Calcium 10.2 mg/dl (8.4-10.2); Carbon Dioxide 30 mmol/L (22.0-30.0); Chloride 100 mmol/L (98-107); Chol/HDL Ratio 3.6 (1-3.5); Cholesterol 160 mg/dl (140-200); Estimated Glomerular Filt Rate 61 ml/min (>60); GFR (African American) 74 ML/MIN (>60); Globulin 2.9 g/dL (1.3-3.2); Glucose 163 mg/dl (74-100); HDL Cholesterol 44 mg/dl (40-60); Potassium 4.5 mmoL/L (3.5-5.1); Sodium 139 mmol/L (136-145); Total Protein,Serum 7.5 g/dl (6.3-8.2); Triglycerides 258 mg/dl (30-150); VLDL Cholesterol 52 mg/dL (0-40)
[2020-02-27 14:43] LABS: Creatinine,Urine Random 171 mg/dL (Not Estab.)
[2020-02-27 14:48] LABS: Direct LDL Cholesterol 76.44 mg/dL (100-129)
[2020-02-27 14:53] LABS: T4 (Thyroxine) 12.7 ug/dl (5.53-11.0)
[2020-02-27 15:07] LABS: Thyroid Stimulating Hormone 4.64 uIU/mL (0.465-4.68)
[2020-02-27 15:24] LABS: Hemoglobin A1C 7.3 % (4.0-6.0)
== END ==
PROVIDERS: Visit Provider Nurse Practitioner Family
DX: E11.9 Type 2 diabetes mellitus without complications (principal); I10 Essential (primary) hypertension; Z79.84 Long term (current) use of oral hypoglycemic drugs
CPT/HCPCS: 80053; 80061; 82043; 82570; 83036; 84436; 84443; 85025

== ENCOUNTER → 2020-03-03 13:32 | Outpatient (CLI) | payer MEDICARE, MEDICAID, SELFPAY ==
[2020-03-05 12:59] LABS: PSA, Free 0.94 ng/mL; Prostate Specific Ag 3.1 ng/mL (0.0-4.0)
== END ==
PROVIDERS: Visit Provider Urology
DX: N40.0 Benign prostatic hyperplasia without lower urinary tract symptoms (principal)
CPT/HCPCS: 36415; 84153; 84154

== ENCOUNTER → 2020-03-07 12:45 | Outpatient (CLI) | payer MEDICARE, MEDICAID, SELFPAY ==
--- NOTE | 2020-03-07 12:45 | US_ITS ---
PROCEDURE: US THYROID CLINICAL INDICATION: hx nodule Follow-up nodules COMPARISON: US US THYROID from 11/28/2019 FINDINGS: Right lobe: 4 x 2.8 x 1.6 cm Left lobe: 3.8 x 1.7 x 1.5 cm Isthmus: Unremarkable Additional findings: There is heterogeneous echogenicity of the thyroid gland. On the right there is a 10 mm hypoechoic nodule anteriorly. Posteriorly there is a 2 x 1.4 cm spongiform nodule not significantly changed. Diffuse heterogeneous echogenicity noted of the left lobe. There is a 14 mm spongiform nodule in the upper pole unchanged. There is a questionable 14 mm slightly hypoechoic nodule in the lower pole unchanged The images are somewhat limited technically. IMPRESSION: No significant change bilateral thyroid nodules Dictated by: Kevin Askew MD 03/07/2020 14:18 Kevin Askew MD in [facility] 03/07/2020 14:18
== END ==
PROVIDERS: PCP Nurse Practitioner Family; Visit Provider Otolaryngology
DX: E03.9 Hypothyroidism, unspecified (principal); E04.1 Nontoxic single thyroid nodule
CPT/HCPCS: 76536

== ENCOUNTER → 2020-03-07 13:25 | Outpatient (CLI) | payer MEDICARE, MEDICAID, SELFPAY ==
[2020-03-07 15:44] LABS: Thyroid Stimulating Hormone 3.39 uIU/mL (0.465-4.68)
== END ==
PROVIDERS: Visit Provider Otolaryngology
DX: E03.9 Hypothyroidism, unspecified (principal); E04.1 Nontoxic single thyroid nodule
CPT/HCPCS: 36415; 76536; 84439; 84443

== ENCOUNTER → 2020-07-28 10:18 | Outpatient (CLI) | payer MEDICARE, MEDICAID, SELFPAY ==
--- NOTE | 2020-07-28 10:18 | US_ITS ---
PROCEDURE: US THYROID CLINICAL INDICATION: THYROID NODULE COMPARISON: US US THYROID from 03/07/2020 FINDINGS: Right lobe: 3.7 x 2.7 x 1.6 cm Left lobe: 2.7 x 1.8 x 1.5 cm Isthmus: 4 millimeters Additional findings: In the right thyroid lobe there is a 1.3 centimeter complex nodule in the upper lobe and a 1.4 centimeter complex nodule in midportion. In the left thyroid lobe there is a 9 millimeter complex nodule in the upper lobe and a 1.5 centimeter more solid-appearing nodule in mid left thyroid lobe. Overall, these nodules appear similar to the most recent prior ultrasound. Repeat thyroid ultrasound in 6 months is recommended for continued close follow-up. IMPRESSION: Bilateral thyroid nodules as described above similar to most recent prior exam. Repeat thyroid ultrasound in 6 months recommended for continued close follow-up. Dictated by: Yayo De Anda 07/29/2020 10:11 Yayo De Anda in [facility] 07/29/2020 10:11
[2020-07-28 12:26] LABS: Free T4 (Free Thyroxine) 1.19 ng/dl (0.78-2.19)
[2020-07-28 12:40] LABS: Thyroid Stimulating Hormone 3.31 uIU/mL (0.465-4.68)
== END ==
PROVIDERS: PCP Nurse Practitioner Family; Visit Provider Otolaryngology
DX: E04.1 Nontoxic single thyroid nodule (principal)
CPT/HCPCS: 36415; 76536; 84439; 84443

== ENCOUNTER → 2020-07-28 10:35 | Outpatient (CLI) | payer MEDICARE, MEDICAID, SELFPAY | PROVIDERS: Visit Provider Otolaryngology | DX: E04.1 Nontoxic single thyroid nodule (principal) | CPT/HCPCS: 36415; 76536; 84439; 84443 ==

== ENCOUNTER → 2020-08-27 14:02 | Outpatient (CLI) | payer MEDICARE, MEDICAID, SELFPAY ==
[2020-08-27 14:30] LABS: Basophils % 0.5 % (0.1-2.0); Eosinophils # 0.3 K/mm3 (0.0-0.4); Eosinophils % 5.5 % (0.1-12.0); Hematocrit 35.5 % (42.0-52.0); Hemoglobin 12.3 g/dL (14.1-18.0); Lymphocytes # 1.4 K/mm3 (0.7-4.5); Mean Corpuscular HGB Conc 34.7 g/dL (31.8-35.4); Mean Corpuscular Hemoglobin 28.5 pg (27.0-31.2); Mean Corpuscular Volume 82.3 fl (80-94); Mean Platelet Volume 11.9 fl (7.4-10.4); Monocytes # 0.4 K/mm3 (0.1-1.0); Monocytes % 8.4 % (1.7-9.3); Neutrophils # 2.5 K/mm3 (1.8-7.8); Neutrophils % 55.6 % (37.0-80.0); Platelet Count 96 K/mm3 (142-424); Red Blood Count 4.31 M/mm3 (4.60-6.20); Red Cell Distribution Width 13.8 % (11.5-17.5); White Blood Count 4.5 K/mm3 (4.8-10.8)
[2020-08-27 14:46] LABS: Alanine Aminotransferase 15 U/L (12-78); Albumin Level 4.2 g/dl (3.5-5.0); Albumin/Globulin Ratio 1.7 (1.1-1.8); Alkaline Phosphatase 63 U/L (38-126); Anion Gap 13.9 mEq/L (5-15); Aspartate Amino Transferase 26 U/L (17-59); Bilirubin,Total 0.6 mg/dl (0.2-1.3); Blood Urea Nitrogen 12 mg/dl (9-20); Calcium 9.4 mg/dl (8.4-10.2); Carbon Dioxide 30 mmol/L (22.0-30.0); Chloride 104 mmol/L (98-107); Chol/HDL Ratio 3.6 (1-3.5); Cholesterol 134 mg/dl (140-200); Estimated Glomerular Filt Rate 67 ml/min (>60); GFR (African American) 82 ML/MIN (>60); Globulin 2.5 g/dL (1.3-3.2); Glucose 177 mg/dl (74-100); HDL Cholesterol 37 mg/dl (40-60); Potassium 4.9 mmoL/L (3.5-5.1); Sodium 143 mmol/L (136-145); Total Protein,Serum 6.7 g/dl (6.3-8.2); Triglycerides 172 mg/dl (30-150); VLDL Cholesterol 34 mg/dL (0-40)
[2020-08-27 14:53] LABS: Hemoglobin A1C 7.3 % (4.0-6.0)
[2020-08-27 14:57] LABS: Direct LDL Cholesterol 69.59 mg/dL (100-129)
[2020-08-27 15:02] LABS: Free T4 (Free Thyroxine) 1.28 ng/dl (0.78-2.19)
[2020-08-27 15:06] LABS: 25-OH Vitamin D, Total 54.7 ng/mL (30-100)
== END ==
PROVIDERS: Visit Provider Nurse Practitioner Family
DX: E11.9 Type 2 diabetes mellitus without complications (principal); I10 Essential (primary) hypertension; K21.9 Gastro-esophageal reflux disease without esophagitis; Z79.84 Long term (current) use of oral hypoglycemic drugs; Z79.899 Other long term (current) drug therapy; E66.3 Overweight; Z68.32 Body mass index [BMI] 32.0-32.9, adult
CPT/HCPCS: 80053; 80061; 82306; 83036; 84439; 84443; 85025

== ENCOUNTER → 2020-09-09 10:41 | Outpatient (CLI) | payer MEDICARE, MEDICAID, SELFPAY ==
[2020-09-11 11:33] LABS: Peripheral Smear Review Scanned Result
== END ==
PROVIDERS: Visit Provider Nurse Practitioner Family
DX: D69.6 Thrombocytopenia, unspecified (principal)
CPT/HCPCS: 36415

== ENCOUNTER → 2020-10-02 13:29 | Outpatient (CLI) | payer MEDICARE, MEDICAID, SELFPAY ==
[2020-10-02 13:57] LABS: Basophils % 0.5 % (0.1-2.0); Eosinophils # 0.3 K/mm3 (0.0-0.4); Eosinophils % 4.7 % (0.1-12.0); Hematocrit 38.8 % (42.0-52.0); Hemoglobin 13.6 g/dL (14.1-18.0); Lymphocytes # 2.4 K/mm3 (0.7-4.5); Mean Corpuscular Hemoglobin 28.5 pg (27.0-31.2); Mean Corpuscular Volume 81.6 fl (80-94); Mean Platelet Volume 10.1 fl (7.4-10.4); Monocytes # 0.4 K/mm3 (0.1-1.0); Monocytes % 6.6 % (1.7-9.3); Neutrophils # 3.5 K/mm3 (1.8-7.8); Neutrophils % 52.2 % (37.0-80.0); Platelet Count 151 K/mm3 (142-424); Red Blood Count 4.75 M/mm3 (4.60-6.20); Red Cell Distribution Width 13.8 % (11.5-17.5); White Blood Count 6.7 K/mm3 (4.8-10.8)
[2020-10-02 16:15] LABS: Alanine Aminotransferase 13 U/L (12-78); Albumin Level 4.4 g/dl (3.5-5.0); Albumin/Globulin Ratio 1.7 (1.1-1.8); Alkaline Phosphatase 64 U/L (38-126); Anion Gap 15.3 mEq/L (5-15); Aspartate Amino Transferase 25 U/L (17-59); Bilirubin,Total 0.7 mg/dl (0.2-1.3); Blood Urea Nitrogen 17 mg/dl (9-20); Calcium 9.2 mg/dl (8.4-10.2); Carbon Dioxide 30 mmol/L (22.0-30.0); Chloride 100 mmol/L (98-107); Chol/HDL Ratio 3.4 (1-3.5); Cholesterol 161 mg/dl (140-200); Estimated Glomerular Filt Rate 75 ml/min (>60); GFR (African American) 91 ML/MIN (>60); Globulin 2.6 g/dL (1.3-3.2); Glucose 127 mg/dl (74-100); HDL Cholesterol 47 mg/dl (40-60); Potassium 4.3 mmoL/L (3.5-5.1); Sodium 141 mmol/L (136-145); Triglycerides 148 mg/dl (30-150); VLDL Cholesterol 30 mg/dL (0-40)
[2020-10-02 16:25] LABS: Direct LDL Cholesterol 83.89 mg/dL (100-129)
[2020-10-02 16:30] LABS: 25-OH Vitamin D, Total 49.8 ng/mL (30-100); T4 (Thyroxine) 11.9 ug/dl (5.53-11.0)
[2020-10-02 16:43] LABS: Thyroid Stimulating Hormone 3.33 uIU/mL (0.465-4.68)
== END ==
PROVIDERS: Visit Provider Nurse Practitioner Family
DX: E11.9 Type 2 diabetes mellitus without complications (principal); I10 Essential (primary) hypertension; K21.9 Gastro-esophageal reflux disease without esophagitis; Z79.84 Long term (current) use of oral hypoglycemic drugs; E66.3 Overweight; Z68.32 Body mass index [BMI] 32.0-32.9, adult
CPT/HCPCS: 80053; 80061; 82306; 83036; 84436; 84443; 85025

== ENCOUNTER → 2020-10-03 14:55 | Outpatient (CLI) | payer MEDICARE, MEDICAID, SELFPAY | PROVIDERS: Visit Provider Nurse Practitioner Family | DX: R50.9 Fever, unspecified (principal); Z20.822 Contact with and (suspected) exposure to COVID-19 | CPT/HCPCS: U0003 ==

== ENCOUNTER → 2021-02-04 12:41 | Outpatient (CLI) | payer MEDICARE, MEDICAID, SELFPAY ==
--- NOTE | 2021-02-04 12:41 | US_ITS ---
PROCEDURE: US THYROID CLINICAL INDICATION: hypothyroid Follow-up nodules COMPARISON: US US THYROID from 07/28/2020 FINDINGS: Right lobe: 3 x 1.6 x 1.5 cm. Heterogeneous echogenicity. Heterogeneous nodule in the right upper pole measures 12 x 6 mm not significantly changed. Ill-defined hypoechoic area in the lower pole measures 9 x 6 mm only well demonstrated in the sagittal plane and a smaller previously at 14 x 15 mm. Left lobe: 3.6 x 2.2 x 1.5 cm. Diffuse heterogeneous echogenicity. 11 mm heterogeneous nodule in the upper pole unchanged. Heterogeneous hypoechoic nodule in the mid polar region measures 14 x 9 mm unchanged. No new nodules evident. Isthmus: Unremarkable Additional findings: IMPRESSION: Bilateral heterogeneous echogenicity of the thyroid with stable bilateral thyroid nodules. Dictated by: Kevin Askew MD 02/05/2021 09:59 Kevin Askew MD in [facility] 02/05/2021 09:59
== END ==
PROVIDERS: PCP Nurse Practitioner Family; Visit Provider Otolaryngology
DX: E03.9 Hypothyroidism, unspecified (principal); E04.1 Nontoxic single thyroid nodule; E04.9 Nontoxic goiter, unspecified
CPT/HCPCS: 76536

== ENCOUNTER → 2021-03-03 13:46 | Outpatient (CLI) | payer MEDICARE, MEDICAID, SELFPAY ==
[2021-03-03 14:13] LABS: Basophils # 0.1 K/mm3 (0-0.2); Basophils % 0.9 % (0.1-2.0); Eosinophils # 0.6 K/mm3 (0.0-0.4); Eosinophils % 4.9 % (0.1-12.0); Hematocrit 47.8 % (42.0-52.0); Lymphocytes # 2.4 K/mm3 (0.7-4.5); Lymphocytes % 18.4 % (10-50); Mean Corpuscular HGB Conc 33.4 g/dL (31.8-35.4); Mean Corpuscular Hemoglobin 28.5 pg (27.0-31.2); Mean Corpuscular Volume 85.3 fl (80-94); Mean Platelet Volume 9.4 fl (7.4-10.4); Monocytes # 0.6 K/mm3 (0.1-1.0); Monocytes % 4.8 % (1.7-9.3); Neutrophils # 9.3 K/mm3 (1.8-7.8); Platelet Count 234 K/mm3 (142-424); Red Blood Count 5.61 M/mm3 (4.60-6.20); Red Cell Distribution Width 13.8 % (11.5-17.5)
[2021-03-03 14:36] LABS: Alanine Aminotransferase 19 U/L (12-78); Albumin Level 4.5 g/dl (3.5-5.0); Albumin/Globulin Ratio 1.8 (1.1-1.8); Alkaline Phosphatase 82 U/L (38-126); Anion Gap 12.7 mEq/L (5-15); Aspartate Amino Transferase 25 U/L (17-59); Bilirubin,Total 0.5 mg/dl (0.2-1.3); Blood Urea Nitrogen 18 mg/dl (9-20); Calcium 9.8 mg/dl (8.4-10.2); Carbon Dioxide 33 mmol/L (22.0-30.0); Chloride 95 mmol/L (98-107); Chol/HDL Ratio 4.4 (1-3.5); Cholesterol 184 mg/dl (140-200); Estimated Glomerular Filt Rate 67 ml/min (>60); GFR (African American) 81 ML/MIN (>60); Globulin 2.5 g/dL (1.3-3.2); Glucose 194 mg/dl (74-100); HDL Cholesterol 42 mg/dl (40-60); Potassium 4.7 mmoL/L (3.5-5.1); Sodium 136 mmol/L (136-145)
[2021-03-03 14:37] LABS: Triglycerides 417 mg/dl (30-150)
[2021-03-03 14:47] LABS: Direct LDL Cholesterol 84.04 mg/dL (100-129)
[2021-03-03 14:54] LABS: T4 (Thyroxine) 14.2 ug/dl (5.53-11.0)
[2021-03-03 15:07] LABS: Thyroid Stimulating Hormone 3.94 uIU/mL (0.465-4.68)
[2021-03-03 16:01] LABS: Hemoglobin A1C 8.2 % (4.0-6.0)
[2021-03-05 08:16] LABS: PSA, Free 0.74 ng/mL; Prostate Specific Ag 3.1 ng/mL (0.0-4.0)
== END ==
PROVIDERS: PCP Nurse Practitioner Family; Visit Provider Urology
DX: E11.9 Type 2 diabetes mellitus without complications (principal); I10 Essential (primary) hypertension; L02.619 Cutaneous abscess of unspecified foot; L03.119 Cellulitis of unspecified part of limb; R97.20 Elevated prostate specific antigen [PSA]; Z79.84 Long term (current) use of oral hypoglycemic drugs
CPT/HCPCS: 36415; 80053; 80061; 83036; 84153; 84154; 84436; 84443; 85025

== ENCOUNTER → 2021-06-01 07:06 | Outpatient (CLI) | payer MEDICARE, MEDICAID, SELFPAY ==
[2021-06-01 08:50] LABS: Basophils # 0.1 K/mm3 (0-0.2); Eosinophils # 0.5 K/mm3 (0.0-0.4); Eosinophils % 6.7 % (0.1-12.0); Hematocrit 42.8 % (42.0-52.0); Hemoglobin 14.2 g/dL (14.1-18.0); Lymphocytes # 2.3 K/mm3 (0.7-4.5); Lymphocytes % 34.2 % (10-50); Mean Corpuscular HGB Conc 33.1 g/dL (31.8-35.4); Mean Corpuscular Hemoglobin 28.9 pg (27.0-31.2); Mean Corpuscular Volume 87.3 fl (80-94); Mean Platelet Volume 10.6 fl (7.4-10.4); Monocytes # 0.4 K/mm3 (0.1-1.0); Monocytes % 5.6 % (1.7-9.3); Neutrophils # 3.5 K/mm3 (1.8-7.8); Neutrophils % 52.4 % (37.0-80.0); Platelet Count 194 K/mm3 (142-424); Red Cell Distribution Width 14.1 % (11.5-17.5); White Blood Count 6.7 K/mm3 (4.8-10.8)
[2021-06-01 09:17] LABS: Hemoglobin A1C 7.5 % (4.0-6.0)
[2021-06-01 09:40] LABS: Chloride 102 mmol/L (98-107); Potassium 4.5 mmoL/L (3.5-5.1); Sodium 140 mmol/L (136-145)
[2021-06-01 09:42] LABS: Alanine Aminotransferase 16 U/L (12-78); Alkaline Phosphatase 70 U/L (38-126); Aspartate Amino Transferase 25 U/L (17-59); Bilirubin,Total 0.5 mg/dl (0.2-1.3); Blood Urea Nitrogen 13 mg/dl (9-20); Estimated Glomerular Filt Rate 85 ml/min (>60); GFR (African American) 102 ML/MIN (>60)
[2021-06-01 09:43] LABS: Albumin Level 4.3 g/dl (3.5-5.0); Albumin/Globulin Ratio 1.7 (1.1-1.8); Anion Gap 12.5 mEq/L (5-15); Calcium 8.7 mg/dl (8.4-10.2); Carbon Dioxide 30 mmol/L (22.0-30.0); Chol/HDL Ratio 3.9 (1-3.5); Cholesterol 155 mg/dl (140-200); Globulin 2.5 g/dL (1.3-3.2); Glucose 148 mg/dl (74-100); HDL Cholesterol 40 mg/dl (40-60); Total Protein,Serum 6.8 g/dl (6.3-8.2); Triglycerides 240 mg/dl (30-150); VLDL Cholesterol 48 mg/dL (0-40)
[2021-06-01 09:55] LABS: Direct LDL Cholesterol 72.99 mg/dL (100-129)
[2021-06-01 10:01] LABS: T4 (Thyroxine) 13.5 ug/dl (5.53-11.0)
[2021-06-01 10:14] LABS: Thyroid Stimulating Hormone 3.98 uIU/mL (0.465-4.68)
== END ==
PROVIDERS: Visit Provider Nurse Practitioner Family
DX: E11.9 Type 2 diabetes mellitus without complications (principal)
CPT/HCPCS: 36415; 80053; 80061; 83036; 84436; 84443; 84681; 85025

== ENCOUNTER → 2021-11-18 11:00 | Outpatient (CLI) | payer MEDICARE, MEDICAID, SELFPAY ==
[2021-11-18 13:57] LABS: Basophils % 0.6 % (0.1-2.0); Eosinophils # 0.4 K/mm3 (0.0-0.4); Eosinophils % 5.4 % (0.1-12.0); Hematocrit 43.8 % (42.0-52.0); Hemoglobin 14.2 g/dL (14.1-18.0); Lymphocytes # 2.2 K/mm3 (0.7-4.5); Lymphocytes % 31.9 % (10-50); Mean Corpuscular HGB Conc 32.6 g/dL (31.8-35.4); Mean Corpuscular Hemoglobin 28.2 pg (27.0-31.2); Mean Corpuscular Volume 86.7 fl (80-94); Mean Platelet Volume 10.8 fl (7.4-10.4); Monocytes # 0.4 K/mm3 (0.1-1.0); Monocytes % 5.9 % (1.7-9.3); Neutrophils # 3.9 K/mm3 (1.8-7.8); Neutrophils % 56.3 % (37.0-80.0); Platelet Count 174 K/mm3 (142-424); Red Blood Count 5.05 M/mm3 (4.60-6.20); Red Cell Distribution Width 13.6 % (11.5-17.5)
[2021-11-18 13:59] LABS: Alanine Aminotransferase 23 U/L (12-78); Albumin Level 4.2 g/dl (3.5-5.0); Albumin/Globulin Ratio 1.7 (1.1-1.8); Alkaline Phosphatase 79 U/L (38-126); Anion Gap 14.7 mEq/L (5-15); Aspartate Amino Transferase 30 U/L (17-59); Bilirubin,Total 0.2 mg/dl (0.2-1.3); Blood Urea Nitrogen 14 mg/dl (9-20); Calcium 8.8 mg/dl (8.4-10.2); Carbon Dioxide 30 mmol/L (22.0-30.0); Chloride 98 mmol/L (98-107); Chol/HDL Ratio 4.6 (1-3.5); Cholesterol 165 mg/dl (140-200); Estimated Glomerular Filt Rate 84 ml/min (>60); GFR (African American) 102 ML/MIN (>60); Globulin 2.5 g/dL (1.3-3.2); Glucose 178 mg/dl (74-100); HDL Cholesterol 36 mg/dl (40-60); Potassium 3.7 mmoL/L (3.5-5.1); Sodium 139 mmol/L (136-145); Total Protein,Serum 6.7 g/dl (6.3-8.2); Triglycerides 354 mg/dl (30-150); VLDL Cholesterol 71 mg/dL (0-40)
[2021-11-18 14:09] LABS: Direct LDL Cholesterol 71.98 mg/dL (100-129)
[2021-11-18 15:20] LABS: Hemoglobin A1C 7.5 % (4.0-6.0)
== END ==
PROVIDERS: PCP Nurse Practitioner Family; Visit Provider Nurse Practitioner Family
DX: E11.9 Type 2 diabetes mellitus without complications (principal); I10 Essential (primary) hypertension; Z79.84 Long term (current) use of oral hypoglycemic drugs
CPT/HCPCS: 80053; 80061; 83036; 84443; 85025

== ENCOUNTER → 2022-05-14 23:46 | Outpatient (CLI) | payer MEDICARE, MEDICAID, SELFPAY ==
[2022-05-14 18:46] LABS: Basophils # 0.1 K/mm3 (0-0.2); Eosinophils # 0.4 K/mm3 (0.0-0.4); Eosinophils % 6.7 % (0.1-12.0); Hemoglobin 14.3 g/dL (14.1-18.0); Lymphocytes % 36.1 % (10-50); Mean Corpuscular HGB Conc 32.6 g/dL (31.8-35.4); Mean Corpuscular Hemoglobin 28.3 pg (27.0-31.2); Mean Corpuscular Volume 86.8 fl (80-94); Mean Platelet Volume 11.4 fl (7.4-10.4); Monocytes # 0.4 K/mm3 (0.1-1.0); Monocytes % 7.2 % (1.7-9.3); Neutrophils # 2.7 K/mm3 (1.8-7.8); Platelet Count 226 K/mm3 (142-424); Red Blood Count 5.06 M/mm3 (4.60-6.20); Red Cell Distribution Width 13.8 % (11.5-17.5); White Blood Count 5.5 K/mm3 (4.8-10.8)
[2022-05-14 18:54] LABS: Alanine Aminotransferase 19 U/L (12-78); Albumin Level 4.3 g/dl (3.5-5.0); Albumin/Globulin Ratio 1.8 (1.1-1.8); Alkaline Phosphatase 60 U/L (38-126); Anion Gap 9.8 mEq/L (5-15); Aspartate Amino Transferase 30 U/L (17-59); Bilirubin,Total 0.5 mg/dl (0.2-1.3); Blood Urea Nitrogen 10 mg/dl (9-20); Calcium 9.1 mg/dl (8.4-10.2); Carbon Dioxide 30 mmol/L (22.0-30.0); Chloride 102 mmol/L (98-107); Chol/HDL Ratio 3.9 (1-3.5); Cholesterol 157 mg/dl (140-200); Estimated Glomerular Filt Rate 84 ml/min (>60); GFR (African American) 102 ML/MIN (>60); Globulin 2.4 g/dL (1.3-3.2); Glucose 168 mg/dl (74-100); HDL Cholesterol 40 mg/dl (40-60); Potassium 3.8 mmoL/L (3.5-5.1); Sodium 138 mmol/L (136-145); Total Protein,Serum 6.7 g/dl (6.3-8.2); Triglycerides 299 mg/dl (30-150); VLDL Cholesterol 60 mg/dL (0-40)
[2022-05-14 19:04] LABS: Direct LDL Cholesterol 71.48 mg/dL (100-129)
[2022-05-14 19:10] LABS: Creatinine,Urine Random 118 mg/dL (Not Estab.)
[2022-05-14 19:13] LABS: Microalbumin/Creatinine Ratio 39.4
[2022-05-14 19:24] LABS: Prostate Specific Ag Screen 3.1 ng/ml (0.0-4.0); Thyroid Stimulating Hormone 3.11 uIU/mL (0.465-4.68)
[2022-05-14 20:19] LABS: Hemoglobin A1C 7.8 % (4.0-6.0)
== END ==
PROVIDERS: PCP Nurse Practitioner Family; Visit Provider Nurse Practitioner Family
DX: I10 Essential (primary) hypertension (principal); Z12.5 Encounter for screening for malignant neoplasm of prostate; E11.9 Type 2 diabetes mellitus without complications; E04.9 Nontoxic goiter, unspecified; Z79.84 Long term (current) use of oral hypoglycemic drugs
CPT/HCPCS: 80053; 80061; 82043; 82570; 83036; 84443; 85025; G0103

== ENCOUNTER → 2022-11-10 23:15 | Outpatient (CLI) | payer MEDICARE, MEDICAID, SELFPAY ==
[2022-11-10 19:22] LABS: Alanine Aminotransferase 22 U/L (12-78); Albumin Level 4.3 g/dl (3.5-5.0); Albumin/Globulin Ratio 1.5 (1.1-1.8); Alkaline Phosphatase 64 U/L (38-126); Anion Gap 16.2 mEq/L (5-15); Aspartate Amino Transferase 30 U/L (17-59); Bilirubin,Total 0.4 mg/dl (0.2-1.3); Blood Urea Nitrogen 16 mg/dl (9-20); Calcium 9.2 mg/dl (8.4-10.2); Carbon Dioxide 22 mmol/L (22.0-30.0); Chloride 104 mmol/L (98-107); Chol/HDL Ratio 4.5 (1-3.5); Cholesterol 158 mg/dl (140-200); Estimated Glomerular Filt Rate 84 ml/min (>60); GFR (African American) 102 ML/MIN (>60); Globulin 2.8 g/dL (1.3-3.2); Glucose 200 mg/dl (74-100); HDL Cholesterol 35 mg/dl (40-60); Potassium 4.2 mmoL/L (3.5-5.1); Sodium 138 mmol/L (136-145); Total Protein,Serum 7.1 g/dl (6.3-8.2); Triglycerides 379 mg/dl (30-150); VLDL Cholesterol 76 mg/dL (0-40)
[2022-11-10 19:32] LABS: Basophils % 0.5 % (0.1-2.0); Eosinophils # 0.5 K/mm3 (0.0-0.4); Eosinophils % 6.5 % (0.1-12.0); Hematocrit 45.7 % (42.0-52.0); Hemoglobin 14.8 g/dL (14.1-18.0); Lymphocytes # 2.3 K/mm3 (0.7-4.5); Lymphocytes % 30.6 % (10-50); Mean Corpuscular HGB Conc 32.4 g/dL (31.8-35.4); Mean Corpuscular Hemoglobin 28.4 pg (27.0-31.2); Mean Corpuscular Volume 87.6 fl (80-94); Mean Platelet Volume 11.6 fl (7.4-10.4); Monocytes # 0.5 K/mm3 (0.1-1.0); Monocytes % 6.5 % (1.7-9.3); Neutrophils # 4.2 K/mm3 (1.8-7.8); Platelet Count 180 K/mm3 (142-424); Red Blood Count 5.21 M/mm3 (4.60-6.20); Red Cell Distribution Width 13.5 % (11.5-17.5); White Blood Count 7.5 K/mm3 (4.8-10.8)
[2022-11-10 19:33] LABS: Direct LDL Cholesterol 71.71 mg/dL (100-129)
[2022-11-10 19:40] LABS: Hemoglobin A1C 7.9 % (4.0-6.0)
[2022-11-10 19:41] LABS: 25-OH Vitamin D, Total 62.9 ng/mL (30-100)
[2022-11-10 19:53] LABS: Thyroid Stimulating Hormone 4.88 uIU/mL (0.465-4.68)
== END ==
PROVIDERS: PCP Nurse Practitioner Family; Visit Provider Nurse Practitioner Family
DX: E04.9 Nontoxic goiter, unspecified (principal); I10 Essential (primary) hypertension; E55.9 Vitamin D deficiency, unspecified; E11.9 Type 2 diabetes mellitus without complications; Z79.84 Long term (current) use of oral hypoglycemic drugs
CPT/HCPCS: 80053; 80061; 82306; 83036; 84443; 85025

== ENCOUNTER 2023-02-17 08:59 | Outpatient (CLI) | payer MEDICARE, MEDICAID, SELFPAY ==
--- NOTE | 2023-02-17 09:00 | US_ITS ---
FINAL REPORT CLINICAL HISTORY: Thyroid nodules COMPARISON: 02/04/2021 FINDINGS: THYROID ULTRASOUND: The right lobe of the thyroid measures 2.9 x 1.7 x 1.5 cm in size. The thyroid gland is diffusely heterogeneous and lobular in appearance. There is a right upper pole nodule measuring 9 x 5 x 5 mm in size, was previously 12 x 6 x 7 mm in size. This nodule is solid, hypoechoic, a TI-RADS category 4 nodule. The other nodules in the right lobe of the thyroid were not clearly identified on this exam. The left lobe of the thyroid measures 3.25 x 1.6 x 1.4 cm in size, is also diffusely heterogeneous and lobular in appearance. The other nodules mentioned on the previous dictation of 2020 are not clearly identified on today's examination. The isthmus of the thyroid measures 3 mm in thickness. IMPRESSION: Diffusely heterogeneous and lobular appearing thyroid gland, and only a single nodule was clearly identified in the right upper pole, and is smaller than seen on the prior examination. The other nodules described on the previous examination are not clearly identified secondary to the diffuse heterogeneity of the gland. Reviewed, Interpreted and Dictated by Vasiliy Horton III, MD Transcribed by Oralia Durand Authenticated and [facility]
== END 2023-02-17 23:59 ==
LOC: RAD 09:00
PROVIDERS: PCP Nurse Practitioner Family; Visit Provider Nurse Practitioner Family
DX: E04.1 Nontoxic single thyroid nodule (principal)
CPT/HCPCS: 76536

== ENCOUNTER 2023-03-10 07:08 | Outpatient (CLI) | payer MEDICARE, MEDICAID, SELFPAY ==
[2023-03-10 08:37] LABS: Blood Urea Nitrogen 12 mg/dl (9-20); Estimated Glomerular Filt Rate 75 ml/min (>60); GFR (African American) 90 ML/MIN (>60)
[2023-03-10 09:08] LABS: Thyroid Stimulating Hormone 3.99 uIU/mL (0.465-4.68)
[2023-03-10 09:23] LABS: Free T4 (Free Thyroxine) 1.28 ng/dl (0.78-2.19)
== END 2023-03-10 23:59 ==
PROVIDERS: Physician Assistant; PCP Nurse Practitioner Family; Visit Provider Nurse Practitioner
DX: E03.9 Hypothyroidism, unspecified (principal); E04.1 Nontoxic single thyroid nodule
CPT/HCPCS: 36415; 82565; 84439; 84443; 84520

== ENCOUNTER 2023-03-15 09:00 | Outpatient (CLI) | payer MEDICARE, MEDICAID, SELFPAY ==
[2023-03-15] VITALS (8 sets, daily range): BP systolic 91–145; BP diastolic 61–82; PULSE 57–79; RESP 16–17; O2SAT 95–100; BMI 27.1
--- NOTE | 2023-03-15 09:00 | CT_ITS ---
APPROVED REPORT Gasfitter: CLINICAL INDICATION Chest Pain TECHNIQUE Image Acquisition: A 128 slice MDCT scanner ([employer] View) was used for data acquisition. A noncontrast coronary calcium scan was performed. A CT attenuation threshold of 130 Hounsfield units (HU) was used for the detection of calcium in contiguous voxels of 1 sq mm in area to be counted as individual lesions. Bolus tracking in the ascending aorta with a threshold of 180 HU was performed. Immediately afterwards, ECG synchronized cardiac CT was then performed from the cardiac base to apex using retrospective gating with ECG tube current modulation. A total of 85 mL of Isovue 370 mg/mL contrast medium was administered at 5 mL/sec followed by a saline flush using a biphasic injection protocol. A tube voltage of 120 KVp was used. The patient received the following medications prior to the cardiac CT. 75 mg of oral metoprolol 15 mg of oral ivabradine 0.8 mg of sublingual nitroglycerin The average heart rate at the time of acquisition was 53 bpm and regular. Image Reconstruction Transaxial images were reconstructed at 0.67 mm slide thickness. Data was reviewed interactively on an advanced workstation capable of 2 and 3-dimensional displays in all conventional reconstruction formats, including multiplanar reformations, maximum intensity projections, curved multiplanar reformations, and volume rendered reconstructions. When applicable, selected routine images describing the relevant coronary anatomy and pathology were saved and sent to PACS. Complications None Technical Quality Overall image quality was good. Coronary artery opacification was adequate. Total DLP (Dose-Length Product) is 1488.5 mGy-cm. The reported value represents the total of one or more individual components during the CT acquisition of this date and at this time, and as such, the same value may appear in more than one CT report depending on the interpreting/reporting physicians. COMPARISON None FINDINGS CT Coronary Calcium Scoring LMA (Left Main Artery) = 0 LAD (Left Anterior Descending) = 40 LCX (Left Coronary Circumflex) = 0 RCA (Right Coronary Artery) = 37 Total Calcium Score = 77 using the AJ-130 method. The observed calcium score of 77 is at 46th percentile for subjects of the same age, sex, and race/ethnicity. The interpretation of the calcium heart score is based on the following continuum*: 0 = no calcified plaque detected (risk of coronary artery disease is very low ??? less than 5%) 1-10 = calcium detected in extremely minimal levels (risk of coronary diseases is still low ??? less than 10%) 11-100 = mild levels of plaque detected with certainty (mild or minimal narrowing of heart arteries is likely) 101-400 = definite,at least moderate levels of plaque detected (relatively high risk of a heart attack within 3-5 years) >401-999 = extensive levels of plaque detected (high risk of heart attack, high levels of vascular disease are present, high likelihood of at least one significant coronary narrowing) *The calcium heart score quantifies the burden of coronary calcification/plaque in the coronary arteries. The calcium heart score is not able to evaluate the presence or burden of non-calcified (i.e. soft) plaque. There is identifiable calcification in the descending thoracic aorta, but not the aortic valve, mitral annulus or mitral valve, pericardium, or myocardium. Coronary CT Angiography The coronary arterial system is right dominant. Quantitative Stenosis Grading: Left Main (LM): The left main originates normally from the left sinus of Valsalva. The LM bifurcates into the left anterior descending artery and left circumflex artery. The LM is patent with no evidence of atherosclerosis. Left Anterior Descending (LAD) and Diagonal Branches: The LAD gives off 2 diagonal branch(es). There is mild calcification present in the mid-LAD, but without any luminal stenosis. There is a mid-LAD myocardial bridge present measuring approximately 7 mm in length and 1 mm in depth. Left Circumflex (LCX) and Obtuse Marginals (OM): The LCX gives off 2 Obtuse Marginal (OM) branch(es). The LCX and its branches are patent with no evidence of atherosclerosis. Right Coronary Artery (RCA): The RCA originates normally from the right sinus of Valsalva. The RCA gives off a posterior descending artery (PDA) and posterolateral (PL) branches. There is mild calcification present in the mid-RCA, but without any luminal stenosis. Non-Coronary Cardiac Findings: Analysis of the left ventricular (LV) structure and function was performed after 3-D reconstruction of the LV from axial images, with user-corrected automatic contouring for assessment of LV volumes and user-defined reconstruction from oblique planes for measurement of 3-D cardiac structure and function. LVEDV: 121 mL LVESV: 47 mL SV: 74 mL LVEF: 61% -The left ventricle is normal in size with normal left ventricular systolic function. -Filling defect of the GENOVEVA is present. This likely represents poor opacification of the IV contrast in the distal GENOVEVA due to contrast timing, but cannot entirely rule out GENOVEVA thrombus. Two right pulmonary veins and two left pulmonary veins drain normally into the left atrium. -No pericardial thickening or calcification. -Central and branch pulmonary arteries in the [id number] are unremarkable. -Thoracic aorta within the visualized thoracic aortic-branches in the [id number] is unremarkable. Extracardiac Structures Hiatal hernia is incidentally noted. IMPRESSION -Presence of coronary calcification with an Agatston score = 77 using the AJ-130 method. The observed calcium score of 77 is at 46th percentile for subjects of the same age, sex, and race/ethnicity. -No evidence of significant flow-limiting atherosclerosis of the coronary arteries. -Mid-LAD myocardial bridge measuring approximately 7 mm in length and 1 mm in depth. -CAD-RADS 1. Management recommendations per ACC/AHA guidelines*, as clinically appropriate. -Hiatal hernia is incidentally noted. *Recommendations: CAD RADS 0: Reassurance. Consider non-atherosclerotic causes of chest pain. CAD RADS 1: Consider non-atherosclerotic causes of chest pain. Consider preventive therapy and risk factor modification. CAD RADS 2: Consider non-atherosclerotic causes of chest pain. Consider preventive therapy and risk factor modification, particularly for patients with nonobstructive plaque in multiple segments. CAD RADS 3: Consider further functional testing. Consider symptom-guided anti-ischemic and preventive pharmacotherapy as well as risk factor modification per published guideline statements. CAD RADS 4A: Consider further functional testing or invasive coronary angiography with revascularization per published guideline statements. Consider symptom-guided anti-ischemic and preventive pharmacotherapy as well as risk factor modification per published guideline statements. CAD RADS 4B: Invasive coronary angiography recommended with revascularization per published guideline statements. Consider symptom-guided anti-ischemic and preventive pharmacotherapy as well as risk factor modification per published guideline statements. CAD RADS 5: Consider invasive angiography and/or viability assessment with revascularization per published guideline statements. Consider symptom-guided anti-ischemic and preventive pharmacotherapy as well as risk factor modification per published guideline statements. CRITICAL RESULT None COMMUNICATION Per this written report The coronary and cardiac findings of this CCTA were reviewed, reported, and signed by Chau Esposito MD ([employer]) Conclusion Electronically signed by : Flakita Esposito MD 03/22/2023 11:22:08
[2023-03-15] MEDS: IVABRADINE HCL 7.5MG TABLET *IVABRADINE+METOPROLOL REGIMINE 15 MG PO (09:22)
[2023-03-15] MEDS: METOPROLOL TARTRATE 25MG TABLET 75 MG (09:22)
[2023-03-15 10:02] LABS: POC Glucose,Bedside 167 (70-110)
[2023-03-15] MEDS: NITROGLYCERIN 0.4MG SL TABLET 0.800000000000000044 MG SL (10:20)
[2023-03-15] MEDS: SODIUM CHLORIDE 0.9% 10ML SYR (RAD ONLY) 10 ML IV (10:47)
[2023-03-15] MEDS: IOPAMIDOL-370 (76%);100ML BOTTLE 85 ML IV (10:47)
[2023-03-15] MEDS: 0.9 % SODIUM CHLORIDE 50 ML VIAL IV (10:47)
== END 2023-03-15 11:12 | disposition home or self-care (01) ==
PROVIDERS: PCP Nurse Practitioner Family; Visit Provider Physician Assistant
DX: E11.9 Type 2 diabetes mellitus without complications (principal); I10 Essential (primary) hypertension; K21.9 Gastro-esophageal reflux disease without esophagitis; R94.31 Abnormal electrocardiogram [ECG] [EKG]; Z82.49 Family history of ischemic heart disease and other diseases of the circulatory system; Z79.84 Long term (current) use of oral hypoglycemic drugs; Z79.899 Other long term (current) drug therapy; R07.9 Chest pain, unspecified
CPT/HCPCS: 75571; 75574; 82962; Q9967

== ENCOUNTER 2023-05-03 09:20 | Outpatient (CLI) | payer MEDICARE, MEDICAID, SELFPAY ==
[2023-05-04 15:00] LABS: Creatinine,Urine Random 65 mg/dL (Not Estab.)
[2023-05-04 15:01] LABS: Microalbumin/Creatinine Ratio 18.7
== END 2023-05-03 23:59 ==
LOC: LAB.DROPOF 05-04 09:21
PROVIDERS: PCP Nurse Practitioner Family; Visit Provider Nurse Practitioner Family
DX: E11.9 Type 2 diabetes mellitus without complications (principal); Z79.84 Long term (current) use of oral hypoglycemic drugs
CPT/HCPCS: 82043; 82570

== ENCOUNTER 2023-07-12 08:41 | Emergency (ER) | payer MEDICARE, MEDICAID, SELFPAY ==
[2023-07-12] VITALS (11 sets, daily range): BP systolic 108–137; BP diastolic 72–82; PULSE 72–82; RESP 16–17; TEMP 36.7; O2SAT 94–99; BMI 27.0
--- NOTE | 2023-07-12 08:52 | PC.NURSE ---
Dr. Cuba at BS for pt eval
--- NOTE | 2023-07-12 08:53 | PC.NURSE ---
in room talking with patient at this time.
--- NOTE | 2023-07-12 08:54 | CT_ITS ---
FINAL REPORT TECHNIQUE: After the administration of intravenous contrast, axial images were obtained through the abdomen and pelvis by computed tomography. Oral contrast was also administered. This study was performed with technique to keep radiation doses as low as reasonably achievable, (ALARA). Individualized dose reduction techniques using automated exposure control or adjustment of the MA and/or KV according to the patient's size were employed. CLINICAL HISTORY: LUQ pain/protrusion, h/o inguinal hernia repair FINDINGS: Abdomen: The lung bases are clear. The liver is normal in size and attenuation. There is a moderate size hiatal hernia. There is heterogeneous decreased attenuation in the spleen most evident in the superior portion, significance unclear. This may be related to red-white pulp differentiation. The adrenals are normal. The pancreas is unremarkable. There is a benign-appearing cyst arising from the left kidney measuring 2.1 cm in diameter. The aorta is normal in caliber. There is no free fluid or adenopathy. Pelvis: The appendix is normal. There are postoperative changes from bilateral inguinal hernia repair. The urinary bladder is unremarkable. There is no free fluid or adenopathy. IMPRESSION: Postoperative change of bilateral inguinal hernia repair. Heterogeneous decreased attenuation in the spleen, etiology unclear. Recommend follow-up CT to include delayed imaging. Reviewed, Interpreted and Dictated by Rajiv Garcia MD Transcribed by Jessy Campbell Authenticated and [facility]
--- NOTE | 2023-07-12 08:55 | [facility].EDGENADL ---
Discharge Plan Disposition Patient Disposition: Home, Self-Care Condition: Good Prescriptions Prescriptions: No Action aspirin 81 mg tablet,delayed release (DR/EC) 81 mg PO DAILY Qty: 30 2RF Jardiance 25 mg tablet 25 mg PO DAILY Qty: 30 2RF calcium citrate-vitamin D3 [Citracal + D Maximum] 315 mg- 250 unit tablet 1 tab PO DAILY Qty: 90 0RF Cerovite Senior Tablet See Rx Instructions .ROUTE .COMPLEX Qty: 90 0RF Dose Instruction: TAKE 1 TABLET BY MOUTH ONCE DAILY Rx Instructions: TAKE 1 TABLET BY MOUTH ONCE DAILY (DME) blood-glucose meter Kit See Rx Instructions .Route Qty: 1 0RF Rx Instructions: Test glucose 1 time per day (DME) OneTouch Ultra Test Strip See Rx Instructions .ROUTE .COMPLEX Qty: 50 11RF Dose Instruction: DIRECTED Rx Instructions: DIRECTED omeprazole 40 mg capsule,delayed release(DR/EC) See Rx Instructions .ROUTE .COMPLEX Qty: 90 1RF Dose Instruction: TAKE 1 CAPSULE BY MOUTH ONCE DAILY Rx Instructions: TAKE 1 CAPSULE BY MOUTH ONCE DAILY lisinopril 2.5 mg tablet See Rx Instructions .ROUTE .COMPLEX Qty: 90 1RF Dose Instruction: TAKE 1 TABLET BY MOUTH ONCE DAILY Rx Instructions: TAKE 1 TABLET BY MOUTH ONCE DAILY metformin 1,000 mg tablet See Rx Instructions .ROUTE .COMPLEX Qty: 180 1RF Dose Instruction: TAKE 1 TABLET BY MOUTH TWICE DAILY Rx Instructions: TAKE 1 TABLET BY MOUTH TWICE DAILY (DME) OneTouch Ultra Test Strip See Rx Instructions .ROUTE .COMPLEX Qty: 50 1RF Dose Instruction: TEST TWICE DAILY Rx Instructions: TEST TWICE DAILY levothyroxine 75 mcg tablet See Rx Instructions .ROUTE .COMPLEX Qty: 30 0RF Dose Instruction: TAKE 1 TABLET BY MOUTH ONCE DAILY Rx Instructions: TAKE 1 TABLET BY MOUTH ONCE DAILY simvastatin 40 mg tablet See Rx Instructions .ROUTE .COMPLEX Qty: 90 2RF Dose Instruction: TAKE 1 TABLET BY MOUTH EVERY EVENING Rx Instructions: TAKE 1 TABLET BY MOUTH EVERY EVENING Referrals Follow up/Referrals: Eladio Cerna APRN [Primary Care Provider] - See instructions Collins Traylor MD [Staff Physician] - See instructions Activity Restrictions/Add. Instructions Additional Instructions/Restrictions: You were evaluated in the emergency department today. At this time, your CT scans and labs are reassuring. Please follow-up closely with your primary care provider. If you continue to have pain, I provided you with information for general surgery follow-up. Return to the emergency department for new or worsening symptoms, such as intractable vomiting, inability to have a bowel movement or pass gas, or other concerns. Clinical Impressions Clinical Impression: Abdominal wall bulge Instructions Patient Instructions: DI for Acute Abdominal Pain Discharge ED Provider: Karishma Cuba General Adult HPI General Chief complaint: Abdominal Pain Stated complaint: knot on left side of abdomen Time Seen by Provider: 07/12/23 08:43 History of Present Illness HPI narrative: This patient is a 67-year-old male with a history of type 2 diabetes, hypothyroidism, GERD, hypertension, hyperlipidemia, and prior inguinal hernia repair presenting to the emergency department for evaluation with concern for left upper abdominal/left flank bulging/pain. He states that he first noticed it about 3 days ago. It intermittently hurts. He is still able to eat and drink fine and is still passing gas and abnormal bowel movements. No fevers, chills, nausea, vomiting, or other concerns noted. Related Data Previous Rx's Medication Instructions Recorded calcium citrate 315 mg 1 tab PO DAILY #90 tabs 02/09/19 calcium-vitamin D3 6.25 mcg (250 unit) tablet (Citracal + Vitamin D Maximum) [id number] See Rx Instructions .Route 08/18/20 tablet (Cerovite Senior) .COMPLEX #90 tabs aspirin 81 mg tablet,delayed 81 mg PO DAILY #30 tabs 11/26/20 release blood-glucose meter #1 ea 03/10/21 blood sugar diagnostic (OneTouch #50 ea 08/11/22 Ultra Test strips) omeprazole 40 mg capsule,delayed See Rx Instructions .Route 03/03/23 release .COMPLEX #90 caps empagliflozin 25 mg tablet 25 mg PO DAILY #30 tabs 05/03/23 (Jardiance) lisinopril 2.5 mg tablet See Rx Instructions .Route 05/04/23 .COMPLEX #90 tabs metformin 1,000 mg tablet See Rx Instructions .Route 05/04/23 .COMPLEX #180 tabs blood sugar diagnostic (OneTouch #50 ea 06/01/23 Ultra Test strips) levothyroxine 75 mcg tablet See Rx Instructions .Route 06/20/23 .COMPLEX #30 tabs simvastatin 40 mg tablet See Rx Instructions .Route 07/06/23 .COMPLEX #90 tabs Allergies Allergy/AdvReac Type Severity Reaction Status Date / Time No Known Allergies Allergy Verified 05/03/23 08:57 [facility] Disclaimer: The information contained in this section may have been updated after the patient was seen, as this information can be updated by other users. Medical History Abnormal electrocardiogram [ECG] [EKG] Diabetes type 2, controlled Hypertension Gastroesophageal reflux disease Normal physical examination Enlarged thyroid Surgical History History of neck surgery History of hernia surgery Social History Smoking Status: Former smoker alcohol intake: never substance use type: denies use current occupational status: retired Travel in the last 8 weeks: None household members: significant other housing: apartment caffeine: No ROS Obtained: Yes All systems reviewed & no additional complaints except as documented Physical Exam General General appearance: alert and in no apparent distress Head Head exam: atraumatic and normocephalic Eye Eye exam: Present normal appearance, PERRL and EOMI ENT ENT exam: Present normal exam, normal oropharynx, mucous membranes moist and normal external ear exam Neck Neck exam: Present normal inspection, full ROM and trachea midline; Absent tenderness Chest Chest inspection: Present normal inspection and symmetric chest wall rise; Absent tenderness Respiratory Respiratory exam: Present normal lung sounds bilaterally; Absent respiratory distress, wheezes, stridor or accessory muscle use Cardiovascular Cardiovascular exam: Present regular rate and normal rhythm Abdominal Exam Abdominal exam: Present soft, distention (Mild, worse in the left upper abdomen) and tenderness (Left upper quadrant); Absent guarding, rebound or rigidity Extremities Exam Extremities exam: Present normal inspection, full ROM and normal capillary refill; Absent tenderness or edema Back Exam Back exam: Present normal inspection and full ROM; Absent tenderness Neurological Exam Neurological exam: Present alert, oriented X3, CN II-XII intact and normal gait; Absent motor sensory deficit Psychiatric Psychiatric exam: Present normal affect and normal mood Skin Skin exam: Present warm and dry Medical Decision Making Medical Records Medical records reviewed: Yes I reviewed the patient's medical records. [place] Inquiry Pt receiving controlled substance: No Vital Signs: 07/12/23 08:42 07/12/23 08:51 07/12/23 09:00 Temperature 98.1 F Temperature Source Oral Pulse Rate 82 79 Pulse Rate [Right] 80 Respiratory Rate 17 Blood Pressure 137/82 108/72 L Blood Pressure [Right Arm] 137/82 Blood Pressure Mean [Right Arm] 100 Blood Pressure Source [Right Arm] Automatic Cuff 02 Sat by Pulse Oximetry 99 97 97 Oxygen Delivery Method Room Air 07/12/23 09:30 07/12/23 10:00 07/12/23 10:30 Temperature Temperature Source Pulse Rate 78 72 75 Pulse Rate [Right] Respiratory Rate Blood Pressure 124/77 132/75 120/79 Blood Pressure [Right Arm] Blood Pressure Mean [Right Arm] Blood Pressure Source [Right Arm] 02 Sat by Pulse Oximetry 97 94 L 95 Oxygen Delivery Method 07/12/23 11:00 07/12/23 11:30 07/12/23 12:00 Temperature Temperature Source Pulse Rate 74 72 72 Pulse Rate [Right] Respiratory Rate Blood Pressure 121/80 130/81 119/78 Blood Pressure [Right Arm] Blood Pressure Mean [Right Arm] Blood Pressure Source [Right Arm] 02 Sat by Pulse Oximetry 97 98 98 Oxygen Delivery Method 07/12/23 12:30 07/12/23 13:00 Temperature 98.1 F Temperature Source Oral Pulse Rate 73 78 Pulse Rate [Right] Respiratory Rate 16 Blood Pressure 130/76 126/81 Blood Pressure [Right Arm] Blood Pressure Mean [Right Arm] Blood Pressure Source [Right Arm] 02 Sat by Pulse Oximetry 95 Oxygen Delivery Method Room Air Lab Data Lab results reviewed: Yes I reviewed the patient's lab results. Lab Results 07/12/23 08:45: WBC 5.7, RBC 5.05, Hgb 14.3, Hct 43.0, MCV 85.2, MCH 28.4, MCHC 33.3, RDW 14.5, Plt Count 147, MPV 10.1, Neut % (Auto) 48.4, Lymph % (Auto) 38.2, [place] % (Auto) 7.1, Eos % (Auto) 5.3, Baso % (Auto) 1.0, Neut # (Auto) 2.8, Lymph # (Auto) 2.2, [place] # (Auto) 0.4, Eos # (Auto) 0.3, Baso # (Auto) 0.1, Sodium 141, Potassium 4.1, Chloride 101, Carbon Dioxide 32 H, Anion Gap 12.1, BUN 14, Creatinine 1.00, Estimated Creat Clear 89, Estimated GFR 75, Est GFR ( Amer) 90, Glucose 187 H, Calcium 10.0, Total Bilirubin 0.4, AST 33, ALT 22, Alkaline Phosphatase 59, Total Protein 7.2, Albumin 4.4, Globulin 2.8, Albumin/Globulin Ratio 1.6, Lipase 136 07/12/23 09:10: Lactate 1.3 07/12/23 08:45 07/12/23 08:45 Orders (Tests/Meds): ED MEDICATIONS Discontinued Medications Generic Name Dose Route Start Last Admin Trade Name Freq PRN Reason Stop Dose Admin Iopamidol 75 ml 07/12/23 09:28 07/12/23 09:28 Iopamidol-370 (76%);100ml Bottle IV 07/12/23 09:29 75 ml ONCE ONE Administration Iopamidol 75 ml 07/12/23 11:26 07/12/23 11:27 Iopamidol-370 (76%);100ml Bottle IV 07/12/23 11:27 75 ml ONCE ONE Administration Sodium Chloride 10 ml 07/12/23 09:28 07/12/23 09:29 Sodium Chloride 0.9% 10ml Syr (Rad Only) IV 08/11/23 09:27 10 ml NEEDED PRN Administration Maintain IV Site Sodium Chloride 10 ml 07/12/23 11:26 07/12/23 11:27 Sodium Chloride 0.9% 10ml Syr (Rad Only) IV 08/11/23 11:25 10 ml NEEDED PRN Administration Maintain IV Site ORDERS Category Date Time Status CT abdomen pelvis w con Stat Cat Scan 07/12/23 08:[address] abdomen wo/w con Stat Cat Scan 07/12/23 10:43 Completed Complete Blood Count Auto Diff Stat Lab 07/12/23 08:45 Completed Comprehensive Metabolic Panel Stat Lab 07/12/23 08:45 Completed Lactic Acid Stat Lab 07/12/23 09:10 Completed Lipase Stat Lab 07/12/23 08:45 Completed Medical Decision Narrative: In summary, this patient is a 67-year-old male presenting to the Emergency Department for evaluation of left upper quadrant abdominal pain/bulging. Differential diagnoses considered include but are not limited to hernia, constipation, bowel obstruction. Ruling out the most morbid conditions drove assessment. It should be noted patient's history includes hypertension, hyperlipidemia, diabetes, and GERD which may or may not be at goal therapy. This complicates all aspects of care by increasing patient's risk for morbidity. On exam, the patient is well-appearing. He has mild upper abdominal tenderness in the left upper quadrant/left flank with no rebound or guarding. He has protrusion of his abdomen there was no obvious palpable abdominal wall defect. Workup included CBC, CMP, lipase, lactic acid, and CT abdomen and pelvis with IV contrast. I independently interpreted CT scan prior to the radiologist read and noted very subtle abdominal wall musculature defect at the site of the bulging. I feel that this could represent a small hernia they noted concern for low attenuation of the spleen, so after discussion with the family, decision was made to order CT abdomen pelvis with delayed phase contrast. This do not demonstrate any acutely concerning abnormalities per radiology. Please see their read for final interpretation. Labs were obtained that demonstrated no acutely concerning abnormalities. On reassessment, the patient is resting comfortably. Given that he has good bladder and bowel function with reassuring workup and exam, I feel that he is appropriate for discharge home with close follow-up with general surgery and primary care. Return precautions were given. Critical Care Critical Care Time Critical Care Time: No
[2023-07-12 09:05] LABS: Basophils # 0.1 K/mm3 (0-0.2); Eosinophils # 0.3 K/mm3 (0.0-0.4); Eosinophils % 5.3 % (0.1-12.0); Hemoglobin 14.3 g/dL (14.1-18.0); Lymphocytes # 2.2 K/mm3 (0.7-4.5); Lymphocytes % 38.2 % (10-50); Mean Corpuscular HGB Conc 33.3 g/dL (31.8-35.4); Mean Corpuscular Hemoglobin 28.4 pg (27.0-31.2); Mean Corpuscular Volume 85.2 fl (80-94); Mean Platelet Volume 10.1 fl (7.4-10.4); Monocytes # 0.4 K/mm3 (0.1-1.0); Monocytes % 7.1 % (1.7-9.3); Neutrophils # 2.8 K/mm3 (1.8-7.8); Neutrophils % 48.4 % (37.0-80.0); Platelet Count 147 K/mm3 (142-424); Red Blood Count 5.05 M/mm3 (4.60-6.20); Red Cell Distribution Width 14.5 % (11.5-17.5); White Blood Count 5.7 K/mm3 (4.8-10.8)
[2023-07-12 09:10] LABS: Alanine Aminotransferase 22 U/L (12-78); Albumin Level 4.4 g/dl (3.5-5.0); Albumin/Globulin Ratio 1.6 (1.1-1.8); Alkaline Phosphatase 59 U/L (38-126); Anion Gap 12.1 mEq/L (5-15); Aspartate Amino Transferase 33 U/L (17-59); Bilirubin,Total 0.4 mg/dl (0.2-1.3); Blood Urea Nitrogen 14 mg/dl (9-20); Carbon Dioxide 32 mmol/L (22.0-30.0); Chloride 101 mmol/L (98-107); Creatinine Clearance Estimated 89 mL/min (50-200); Estimated Glomerular Filt Rate 75 ml/min (>60); GFR (African American) 90 ML/MIN (>60); Globulin 2.8 g/dL (1.3-3.2); Glucose 187 mg/dl (74-100); Lipase 136 U/L (23-300); Potassium 4.1 mmoL/L (3.5-5.1); Sodium 141 mmol/L (136-145); Total Protein,Serum 7.2 g/dl (6.3-8.2)
--- NOTE | 2023-07-12 09:19 | PC.NURSE ---
Pt gone to RAD
--- NOTE | 2023-07-12 09:27 | PC.NURSE ---
PT back to room from [facility]
[2023-07-12] MEDS: IOPAMIDOL-370 (76%);100ML BOTTLE 75 ML IV ×2 (09:28→11:27)
[2023-07-12] MEDS: SODIUM CHLORIDE 0.9% 10ML SYR (RAD ONLY) 10 ML IV ×2 (09:29→11:27)
[2023-07-12 09:34] LABS: Lactic Acid 1.3 mmol/L (0.7-2.1)
--- NOTE | 2023-07-12 10:43 | CT_ITS ---
FINAL REPORT TECHNIQUE: Before and after the administration of oral and intravenous contrast, axial images were obtained through the abdomen by computed tomography. The study was performed with techniques to keep radiation dose as low as reasonably achievable, (ALARA). Individual dose reduction techniques using automated exposure control or adjustment of mA and/or kV according to the patient's size were employed. CLINICAL HISTORY: delayed to eval spleen, abnormal CT, LUQ pain COMPARISON: Prior exam also dated 07/12/2023 FINDINGS: CT ABDOMEN WITH AND WITHOUT CONTRAST: The lung bases are clear. A moderate sized hiatal hernia is present. The liver is unremarkable in appearance. No evidence of dilated ducts or focal mass is seen. The heterogeneous decreased attenuation focus seen in the spleen on the prior exam of 07/12/2023 is not well-visualized on the second exam, and likely represented physiologic distribution of contrast. The benign-appearing left renal cyst noted on the prior exam remains unchanged. No mass or adenopathy is present. IMPRESSION: Heterogeneous decreased attenuation focus seen in the spleen on the earlier exam of 07/12/2023 is not well-visualized on this second examination, and likely represented physiologic distribution of contrast. Reviewed, Interpreted and Dictated by Rajiv Garcia MD Transcribed by Oralia Durand Authenticated and . [facility]
--- NOTE | 2023-07-12 11:09 | PC.NURSE ---
Rounded on patient, no needs voiced at this time.
== END 2023-07-12 13:02 | disposition home or self-care (01) ==
PROVIDERS: Emergency Provider Emergency Medicine; PCP Nurse Practitioner Family
DX: R10.12 Left upper quadrant pain (principal); R10.32 Left lower quadrant pain; E11.9 Type 2 diabetes mellitus without complications; I10 Essential (primary) hypertension; K21.9 Gastro-esophageal reflux disease without esophagitis; E03.9 Hypothyroidism, unspecified; Z79.84 Long term (current) use of oral hypoglycemic drugs; R19.04 Left lower quadrant abdominal swelling, mass and lump; R19.02 Left upper quadrant abdominal swelling, mass and lump
CPT/HCPCS: 74170; 74177; 80053; 83605; 83690; 85025; 99284; Q9967

== ENCOUNTER 2024-02-20 10:34 | Outpatient (CLI) | payer MEDICARE, MEDICAID, SELFPAY ==
--- NOTE | 2024-02-20 10:40 | US_ITS ---
FINAL REPORT CLINICAL HISTORY: thyroid nodule COMPARISON: 02/17/2023 FINDINGS: THYROID ULTRASOUND: The right lobe of the thyroid measures 3.8 x 2.3 x 2.4 cm in size. The thyroid gland is inhomogeneous, however no discrete nodule is identified on today's examination. The left lobe of the thyroid gland measures 3.8 x 1.7 x 1.9 cm in size. The thyroid gland on the left side is also diffusely inhomogeneous, however no discrete nodule is identified on today's examination. The isthmus measures 4 mm in thickness. IMPRESSION: Diffuse inhomogeneity of the thyroid gland, and no focal nodules are identified. Reviewed, Interpreted and Dictated by Rajiv Garcia MD Transcribed by Oralia Durand Authenticated and [facility]
== END 2024-02-20 23:59 | disposition home or self-care (01) ==
LOC: RAD 10:35
PROVIDERS: PCP Nurse Practitioner Family; Visit Provider Nurse Practitioner
DX: E04.1 Nontoxic single thyroid nodule (principal)
CPT/HCPCS: 76536

== ENCOUNTER 2024-02-28 09:19 | Outpatient (CLI) | payer MEDICARE, MEDICAID, SELFPAY ==
[2024-02-28 18:21] LABS: Basophils % 0.7 % (0.1-2.0); Eosinophils # 0.2 K/mm3 (0.0-0.4); Eosinophils % 3.6 % (0.1-12.0); Hemoglobin 15.1 g/dL (14.1-18.0); Lymphocytes % 32.6 % (10-50); Mean Corpuscular HGB Conc 32.1 g/dL (31.8-35.4); Mean Corpuscular Hemoglobin 28.1 pg (27.0-31.2); Mean Corpuscular Volume 87.5 fl (80-94); Mean Platelet Volume 12.3 fl (7.4-10.4); Monocytes # 0.6 K/mm3 (0.1-1.0); Monocytes % 9.2 % (1.7-9.3); Neutrophils # 3.3 K/mm3 (1.8-7.8); Neutrophils % 53.6 % (37.0-80.0); Platelet Count 183 K/mm3 (142-424); Red Blood Count 5.37 M/mm3 (4.60-6.20); Red Cell Distribution Width 13.4 % (11.5-17.5); White Blood Count 6.1 K/mm3 (4.8-10.8)
[2024-02-28 18:46] LABS: Creatinine,Urine Random 70 mg/dL (Not Estab.)
[2024-02-28 18:47] LABS: Microalbumin/Creatinine Ratio 12.7
[2024-02-28 18:52] LABS: Alanine Aminotransferase 19 U/L (12-78); Albumin Level 4.7 g/dl (3.5-5.0); Alkaline Phosphatase 65 U/L (38-126); Anion Gap 15.1 mEq/L (5-15); Aspartate Amino Transferase 30 U/L (17-59); Bilirubin,Total 0.4 mg/dl (0.2-1.3); Blood Urea Nitrogen 14 mg/dl (9-20); Calcium 9.8 mg/dl (8.4-10.2); Carbon Dioxide 28 mmol/L (22.0-30.0); Chloride 101 mmol/L (98-107); Chol/HDL Ratio 4.2 (1-3.5); Cholesterol 151 mg/dl (140-200); Estimated Glomerular Filt Rate 84 ml/min (>60); GFR (African American) 102 ML/MIN (>60); Globulin 2.3 g/dL (1.3-3.2); Glucose 130 mg/dl (74-100); HDL Cholesterol 36 mg/dl (40-60); Potassium 4.1 mmoL/L (3.5-5.1); Sodium 140 mmol/L (136-145); Triglycerides 262 mg/dl (30-150); VLDL Cholesterol 52 mg/dL (0-40)
[2024-02-28 19:03] LABS: Direct LDL Cholesterol 73.03 mg/dL (100-129)
[2024-02-28 19:22] LABS: Prostate Specific Ag Screen 3.3 ng/ml (0.0-4.0); Thyroid Stimulating Hormone 3.63 uIU/mL (0.465-4.68)
[2024-02-28 20:01] LABS: HIV Combo NEGATIVE (Negative)
[2024-02-28 20:08] LABS: Hepatitis C Ab Qual. W/ RFX NEGATIVE (Negative)
[2024-02-28 21:03] LABS: 25-OH Vitamin D, Total 56.2 ng/mL (30-100)
[2024-02-29 22:24] LABS: Hemoglobin A1C 6.7 % (4.0-6.0)
== END 2024-02-28 23:59 | disposition home or self-care (01) ==
LOC: LAB.DROPOF 02-29 14:53
PROVIDERS: PCP Nurse Practitioner Family; Visit Provider Nurse Practitioner Family
DX: E11.9 Type 2 diabetes mellitus without complications (principal); E03.9 Hypothyroidism, unspecified; I10 Essential (primary) hypertension; Z11.4 Encounter for screening for human immunodeficiency virus [HIV]
CPT/HCPCS: 80053; 80061; 82043; 82306; 82570; 83036; 84443; 85025; 86803; 87389; G0103

== ENCOUNTER 2024-11-28 09:21 | Outpatient (CLI) | payer MEDICARE, MEDICAID, SELFPAY ==
[2024-11-28 16:58] LABS: Anion Gap 15.7 mEq/L (5-15); Blood Urea Nitrogen 17 mg/dl (9-20); Calcium 9.7 mg/dl (8.4-10.2); Carbon Dioxide 29 mmol/L (22.0-30.0); Chloride 101 mmol/L (98-107); Creatinine,Serum 1.10 mg/dl (0.66-1.25); Estimated Glomerular Filt Rate 66 ml/min (>60); GFR (African American) 80 ML/MIN (>60); Glucose 158 mg/dl (74-100); Potassium 4.7 mmoL/L (3.5-5.1); Sodium 141 mmol/L (136-145)
[2024-11-28 17:18] LABS: Hemoglobin A1C 7.0 % (4.0-6.0)
--- OUTSIDE RECORDS SUMMARY | 2024-11-29 09:45 | XMS_ITS | Encounter Summary ---
Author Organization Healthcare Address [address] [place] [address] Care Team Providers Care Radiology Supervisor Name Role Phone Eladio Cerna APRN Primary Care Provider [phone] Reason for Visit * Reason Comments Follow-up 6months Encounter Details Date Type Department Care Team (Late st Contact Info) Description 11/29/2024 9:45 AM EDT Office Visit [facility] General Surgery [address] [place] [address] Marisol Rodrigez MD [address] [place] [address] Personal history of nutritional deficiency (Primary Dx) Social History Tobacco Use Types Packs/Day Years Used Date Smoking Tobacco: Former Cigarettes 2 19.8 S tarted: 2006 Smokeless Tobacco: Never Alcohol Use Standard Drinks/Week Comments Not Currently 0 (1 standard drink = 0.6 oz pur e alcohol) Quit 2001 PHQ-2 Answer Date Recorded Patient Health Questionnaire-2 Score 0 09/29/2023 Sex and Gender Information Value Date Recorded Sex Assigned at Not on file Legal Sex Male 7:42 PM EDT Gender Identity Not on file Sexual Orientation Not on file documented as of this encounter Last Filed Vital Signs Vital Sign Reading Time Taken Comments Blood Pressure 130/81 11/29/2024 9:49 AM EDT Pulse 79 11/29/2024 9:49 AM EDT Temperature 36.5 C (97.7 F) 11/29/2024 9:49 AM EDT Respiratory Rate - - Oxygen Saturation - - Inhaled Oxygen Concentration - - Weight 84.7 kg (186 lb 11.2 oz) 11/29/2024 9:49 AM EDT Height 173 cm (5' 8.11 ) 11/29/2024 9:49 AM EDT Body Mass Index 28.3 11/29/2024 9:49 AM EDT documented in this encounter Plan of Treatment Not on file documented as of this encounter Procedures Procedure Name Priority Date/Time Associated Diagnosis Comments POCT GLYCOSYLATED HEMOGLOBIN (HGB A1C) Routine 11/29/2024 10:08 AM EDT Personal history of nutritional deficiency documented in this encounter Results * POCT Glycosylated Hemoglobin (Hgb A1C) (11/29/2024 10:08 AM EDT) POCT Hemoglobin A1C 7.4 <5.7% Non-Diabet ic % [facility] Kit Lot Number [id number] [facility] Kit Expiration Date 10/14/26 [facility] Blood Venous blood specimen / Unknown 11/29/2024 10:08 AM EDT us Marisol Rodrigez MD POINT OF CARE TEST ENTER/MELIDA T ORDERABLES Final Result Performing Organization Address City/State/[facility] Co de Phone Number [facility] [address] [place] [address] documented in this encounter Visit Diagnoses Diagnosis Personal history of nutritional deficiency- Primary documented in this encounter Additional Health Concerns Assessment Noted Time A fall risk assessment has been complete d for the patient 12/26/2023 12:22 PM EST A Body Mass Index follow-up plan has been documented for the patient 12/29/2023 4:10 PM EST documented as of this encounter Care Teams Radiology Supervisor Relationship Specialty Start Date End Date Eladio Cerna APRN [address] [place] [address] PCP - General 09/29/23 documented as of this encounter
--- OUTSIDE RECORDS SUMMARY | 2024-11-29 12:13 | XMS_ITS | Data Portability ---
Author Organization [facility] Address [address] [facility] [address] [place] [address] Assessment Encounter Date Assessment Date Assessment LastModified by Organization Details LastModified Time 05/31/2018 05/31/2018 PREOPERATIVE DIAGNOSIS: Prostate nodule. POSTOPERATIVE DIAGNOSIS: Prostate nodule. PROCEDURE: Transrectal ultrasound and needle biopsy of the prostate. SURGEON: Rupesh Keller MD ANESTHESIA: Standard prostatic block, 1% xylocaine bilaterally at the base prostate 10 mL each side. SPECIMEN: Six from the left and 6 fro the right. BRIEF HISTORY: Patient is a 62-year-old gentleman with history of recently asymmetric prostate exam. His PSA was 3.8. It is a very prominent lateral sulcus. He presents today for transrectal ultrasound and needle biopsy of the prostate. OPERATIVE NOTE: He was placed in the left lateral decubitus position. A probe was placed in the rectum. Volume is calculated to be 19 mL. Standard prostate block was performed, 10 mL of 1% xylocaine bilaterally at the base of the prostate. Internal echogenic pattern was unremarkable. Standard prostate biopsies were performed, 3 medially and 3 laterally bilaterally, 6 on each side. Well tolerated. He was transferred to postoperative area in stable condition. [id number] Not available 06/01/2018 03:51:20 Plan of Treatment Reminders Order Date Submit Date Provider Last Modified By Organization Details Last Modified Time Details Appointments None record ed. Lab None record ed. Referral None record ed. Procedures None record ed. Surgeries None record ed. Imaging None record ed. Medication Orders None record ed. Patient TargetsNo targets recorded. Patient InstructionsNo instructions recorded. Reason for Referral None Reported. Results Created Date Observation Date Name Description Value Unit Range Abnormal Flag Note LastModifiedBy Organization Detail LastModifiedTime 06/01/19 19 05/31/2018 surgi flakito patho logy study surgical pathology procedure SEE BELOW Depar tment of Patho logy Surgi flakito Patho logy Repor t NAME: FREDDIE GODDARD PATH. :[id number] Copy to: Diagn osis: A) Left prost ate biops y: Benig n prost atic tissu e. B) Right prost ate biops y: Benig n prost atic tissu e. SOURC E OF SPECI MEN: PROST ATE , LEFT PROST ATE , RIGHT CLINI FLAKITO INFOR MATIO N: R97.2 0 ELEVA MAUREEN PSA / LEVEL - 3.88 Gross Descr iptio n: A) Recei yariel in forma raúl label ed with the patie nt's name and desig nated as left prost ate biops y are seven thin cores of bustillos-w contreras tissu e measu ring 0.4, 1.4, 1.5 and (4) 1.6, cm in lengt h. Entir bin submi tted in one block . B) Recei yariel in forma raúl label ed with the patie nt's name and desig nated as righ t prost ate biops y are six thin cores of bustillos-w contreras tissu e measu ring (2) 1.2, 1.3, 1.4, 1.6 and 1.7 cm in lengt h. Entir bin submi tted in one block . JAB 05/31 04:18 PM Micro scopi c Descr iptio n: Secti ons of the left and right prost ate core biops ies show benig n prost atic tissu e. J.MD Josi SANTACRUZ Out Date: 06/01 10:04 Page 1 of 1 Not Available [facility] [address] [facility], [place], [address], 06/01/2018 10:05:33 Result Notes None recorded. Medical Equipment None Reported. Medications Name Sig Start Date Stop Date Status Note LastModified by Organization Details LastModified Time omeprazole 40 mg capsule,de layed release active Not Available Not Available Not Available simvastati n 40 mg tablet active Not Available Not Available Not Available levothyrox ine 75 mcg tablet active Not Available Not Available Not Available omeprazole 20 mg capsule,de layed release active Not Available Not Available Not Available levofloxac in 500 mg tablet active Not Available Not Available Not Available Clobex 0.05 % lotion As Directed 2006 active Instructi ons: apply to affected area [id number] prn;Frequ ency: as direct.;M edication Descripti on: clobetaso l topical; Dosage:as directed; Route:top ical; refills:1 ; Quantity: 30ml lotion Not Available Not Available Not Available Havrix (PF) 1,440 ASHLEE unit/mL intramuscu lar syringe active Not Available Not Available Not Available Suprep Bowel Prep Kit 17.5 gram-3.13 gram-1.6 gram oral solution active Not Available Not Available Not Available Vitals None Recorded Social History None recorded. Functional Status None recorded. Mental Status None recorded. Family History Nothing Reported. Medical History No medical history recorded. Past Encounters Encounter ID Performer Location Encounter Start Date Encounter Closed Date Diagnosis/Indication Diagnosis SNOMED-CT Code Diagnosis ICD10 Code Diagnosis IMO Codes Diagnosis Note [id number] RUPESH KELLER MD SURGERY SCHEDULE [address] [place] [address] 05/31/2018 07:00:45 05/31/2018 07:07:40 Health Concerns Section Related Observation LastModified by Organization Detai ls LastModified Time None Recorded Concern Status LastModified by Organization Details LastModified Time None Recorded Advance Directives Directive None Recorded Payers Insurance Date Sequence Insurance Name Policy Number Policy Bradley Covered Member ID Bradley Member ID Guarantor Name 06/06/2018 2 [place] [employer] - FFS/TRADITIO NAL Freddie Goddard [id number] Freddie Goddard 05/31/2018 1 [place] Freddie Goddard [id number] Freddie Goddard
--- OUTSIDE RECORDS SUMMARY | 2024-11-29 12:13 | XMS_ITS | Encounter Summary ---
Author Organization Healthcare Address [address] [place] [address] Care Team Providers Care Upsetter Name Role Phone Eladio Cerna APRN Primary Care Provider [phone] Encounter Details Date Type Department Care Team (Late st Contact Info) Description 07/12/2023 Orders Only External Location [address] [place] [address] Kairshma [place], [address] [place] [address] Social History Tobacco Use Types Packs/Day Years Used Date Smoking Tobacco: Never Assessed Sex and Gender Information Value Date Recorded Sex Assigned at Not on file Legal Sex Male 7:42 PM EDT Gender Identity Not on file Sexual Orientation Not on file documented as of this encounter Plan of Treatment Not on file documented as of this encounter Procedures Procedure Name Priority Date/Time Associated Diagnosis Comments CT OUTSIDE IMAGES 07/12/2023 9:23 AM EDT documented in this encounter Results * CT OUTSIDE IMAGES (07/12/2023 9:23 AM EDT) Anatomical Region Laterality Modality Computed Tomogra phy 07/12/2023 9:23 AM EDT [address]ishma BARRETTG CT PROCEDURES Final Result documented in this encounter Visit Diagnoses Not on filedocumented in this encounter Care Teams Upsetter Relationship Specialty Start Date End Date Eladio Cerna APRN [address] [place] [address] [place] [address] PCP - General 09/29/23 documented as of this encounter
--- OUTSIDE RECORDS SUMMARY | 2024-11-29 12:13 | XMS_ITS | Encounter Summary ---
Author Organization Healthcare Address [address] [place] [id number] Care Team Providers Care Kiln Pusher Name Role Phone Eladio Cerna APRN Primary Care Provider Encounter Details Date Type Department Care Team (Latest Contact Info) Description 11/29/2024 Travel Social History Tobacco Use Types Packs/Day Years Used Date Smoking Tobacco: Former Cigarettes 2 19.8 S tarted: 2005 Smokeless Tobacco: Never Alcohol Use Standard Drinks/Week [...] on file documented as of this encounter Visit Diagnoses Not on filedocumented in this encounter Additional Health Concerns Assessment Noted Time A fall risk assessment has been complete d for the patient 12/26/2023 12:22 PM EST A Body Mass Index follow-up plan has been documented for the patient 12/29/2023 4:10 PM EST documented as of this encounter Care Teams Kiln Pusher Relationship Specialty Start Date End Date Eladio Cerna APRN [address] [place] [address] [place] [address] PCP - General 09/29/23 documented as of this encounter
--- OUTSIDE RECORDS SUMMARY | 2024-11-29 12:13 | XMS_ITS | Encounter Summary ---
Author Organization Healthcare Address [address] [place] [address] Care Team Providers Care Wharf Tally Clerk Name Role Phone Eladio Cerna APRN Primary Care Provider [phone] Encounter Details Date Type Department Care Team (Late st Contact Info) Description 07/12/2023 Orders Only External Location [address] [place] [address] Karishma [place], [address] [place] [address] Social History Tobacco Use Types [...] Associated Diagnosis Comments CT OUTSIDE IMAGES 07/12/2023 11:09 AM EDT documented in this encounter Results * CT OUTSIDE IMAGES (07/12/2023 11:09 AM EDT) Anatomical Region Laterality Modality Computed Tomogra phy 07/12/2023 11:0 9 AM EDT Karishma Cuba DO IMG CT PROCEDURES Final Result documented in this encounter Visit Diagnoses Not on filedocumented in this encounter Care Teams Wharf Tally Clerk Relationship Specialty Start Date End Date Eladio Cerna APRN [address] [place] [address] [place] [address] PCP - General 09/29/23 documented as of this encounter
--- OUTSIDE RECORDS SUMMARY | 2024-11-29 12:14 | XMS_ITS | Clinical Summary ---
Author Organization Healthcare Address [address] [place] [address] Care Team Providers Care Family Intervention Specialist Name Role Phone Eladio Cerna APRN Primary Care Provider [phone] Allergies No known active allergies Medications Jardiance 10 MG 09/06/2023 Act trista OneTouch Ultra Test test strip 08/29/2023 Act trista levothyroxine (Synthroid, Levoxyl) 75 MCG tablet .COMPLEX 06/20/2023 Active lisinopril 2.5 MG tablet .COMPLEX 05/04/2023 Active metFORMIN (Glucophage) 1000 MG tablet .COMPLEX 05/04/2023 Acti ve omeprazole (PriLOSEC) [address] capsule .COMPLEX 03/03/2023 Activ e simvastatin (Zocor) 40 MG tablet .COMPLEX 07/06/2023 Active Ozempic, 0.25 or 0.5 MG/DOSE, 2 MG/3ML solution pen-injector Patient has not started this yet 09/06/2023 Active Active Problems Problem Noted Date Diagnosed Date Lumbar hernia 12/26/2023 Flank hernia 12/26/2023 Abdominal wall bulge 09/29/2023 Enlarged thyroid 09/29/2023 Thyroid nodule 09/29/2023 Gastroesophageal reflux disease 09/29/2023 Hypertension 09/29/2023 Hypothyroidism (acquired) 09/29/2023 Type 2 diabetes mellitus 09/29/2023 Resolved Problems Problem Noted Date Diagnosed Date Resolved Date Abnormal electrocardiogram 09/29/2023 0 11/04/2024 Chest pain 09/29/2023 11/04/2024 Lesion of nose 09/29/2023 11/04/2024 Encounters Date Type Department Care Team Description 11/29/2024 9:45 AM EDT Office Visit [facility] General Surgery [address], [address] [place] [address] Marisol Rodrigez MD Personal history of nutritional deficiency (Primary Dx) 11/29/2024 Travel from Last 3 Months Immunizations Immunization Administration Dates Next Due Hep A, Adult 02/01/2018 Influenza Vaccine, Quadrivalent, Adjuvanted 06/2022,10/05/2021 Influenza, injectable, MDCK, preservative free, quadrivalent 10/06/2019 Influenza, injectable, quadrivalent 10/18/2017 Influenza, injectable, quadrivalent, preservativ e free 10/06/2019,09/22/2016 Influenza, seasonal, injectable 10/03/2020 Influenza, seasonal, injectable, preservative fr ee 10/19/2018 Pneumococcal Polysaccharide PPV23 11/11/2017 TD (adult), 2 Lf tetanus tox oid, preservative free, adsorbed 04/25/1996 Family History Medical History Relation Name Comments Diabetes Father Relation Name Status Comments Father Social History Tobacco Use Types Packs/Day Years [...] on file Sexual Orientation Not on file Last Filed Vital Signs Vital Sign Reading Time Taken Comments Blood Pressure 130/81 11/29/2024 9:49 AM EDT Pulse 79 11/29/2024 9:49 AM EDT Temperature 36.5 C (97.7 F) 11/29/2024 9:49 AM EDT Respiratory Rate 16 12/26/2023 12:2 4 PM EST Oxygen Saturation 98% 12/26/2023 12: 24 PM EST Inhaled Oxygen Concentration - - Weight 84.7 kg (186 lb 11.2 oz) 11/29/2024 9:49 AM EDT Height 173 cm (5' 8.11 ) 11/29/2024 9:49 AM EDT Body Mass Index 28.3 11/29/2024 9:49 AM EDT Plan of Treatment Health Maintenance Due Date Last Done Comments [facility]-Hepatitis C Screening 1955 [facility]-Medicare Annual Wellness (AWV) 1955 [facility]-/Child/Adol SDOH Screenings 1955 Diabetes: Dental Exam 10/12/1965 [facility]- SDOH Screenings 10/12/1973 [facility]-Adult SDOH Screenings 10/12/1973 [facility]-DTaP,Tdap,and Td Vaccines (1 - Tdap) 04/26/1996 04/25/1996 CT Colonography 10/12/2000 Colonoscopy 10/12/2000 FIT-DNA 10/12/2000 FIT 10/12/2000 FOBT 10/12/2000 Sigmoidoscopy 10/12/2000 [facility]-Colorectal Cancer Screening 10/12/2000 [facility]-Zoster Vaccines (1 of 2) 10/12/2005 [facility]-RSV Vaccine: 60+ Years or (1 - Risk 60-74 years 1-dose series) 2015 [facility]-Pneumococcal Vaccine: 50+ Years (2 of 2 - PCV) 11/11/2018 11/11/2017 [facility]-Abdominal Aortic Aneurysm (AAA) Screening 10/12/2020 [facility]-Depression Screening 09/28/2024 09/29/2023 [facility]-Diabetes: Hemoglobin A1C 02/28/2025, 12/26/2023, 09/29/2023 [facility]-Hepatitis A Vaccines Aged Out 02/01/2018 No longer eligible based on patient's age to complete this topic [facility]-Obesity Intervention Completed 12/26/2023, 09/14 [facility]-Influenza Vaccine Completed 10/26/2024 , 10/19/2023, 10/19/2022, Additional history exists [id number] Vaccine Completed 11/06/2024, 11/03/2023, 11/03/2023, Additional history exists HPV Vaccines Aged Out No longer eligi ble based on patient's age to complete this topic [facility]-HIB Vaccines Aged Out No longer e ligible based on patient's age to complete this topic [facility]-IPV Vaccines Aged Out No longer e ligible based on patient's age to complete this topic [facility]-Rotavirus Vaccines Aged Out No lo nger eligible based on patient's age to complete this topic Procedures Procedure Name Priority Date/Time Associated Diagnosis Comments POCT GLYCOSYLATED HEMOGLOBIN (HGB A1C) Routine 11/29/2024 10:08 AM EDT Personal history of nutritional deficiency from Last 3 Months Results * POCT Glycosylated Hemoglobin (Hgb A1C) (11/29/2024 10:08 AM EDT) POCT Hemoglobin A1C 7.4 <5.7% Non-Diabet ic % [facility] Kit Lot Number [id number] [facility] Kit Expiration Date 10/14/26 [facility] Blood Venous blood specimen / Unknown 11/29/2024 10:08 AM EDT Marisol Rodrigez MD POINT OF CARE TEST ENTER/MELIDA T ORDERABLES Final Result Performing Organization Address City/State/[facility] Co de Phone Number [facility] [address] [place] [address] from Last 3 Months Insurance [place]ICAID-[place] [employer] MEDICARE Care Teams Family Intervention Specialist Relationship Specialty Start Date End Date Eladio Cerna APRN [address] [place] [address] PCP - General 09/29/23
== END 2024-11-28 23:59 ==
LOC: LAB.DROPOF 11-29 12:12
PROVIDERS: PCP Nurse Practitioner Family; Visit Provider Nurse Practitioner Family
DX: E11.9 Type 2 diabetes mellitus without complications (principal)
CPT/HCPCS: 80048; 83036

== ENCOUNTER 2025-01-23 13:12 | Outpatient (CLI) | payer MEDICARE, MEDICAID, SELFPAY ==
--- NOTE | 2025-01-23 13:30 | US_ITS ---
FINAL REPORT TECHNIQUE: Real-time grayscale and color ultrasound of the thyroid was performed. CLINICAL HISTORY: 1 year f/u to monitor the status of thyroid nodule COMPARISON: 02/20/2024 FINDINGS: The thyroid gland measures 29 x 22 x 13 mm on the right and 34 x 18 x 13 mm on the left. The isthmus measures 3 mm. The parenchyma is diffusely heterogeneous.. Nodules: No discrete nodules. IMPRESSION: Unremarkable thyroid exam Reviewed, Interpreted and Dictated by Rajiv Garcia MD Transcribed by Cris Talley Authenticated and [facility]
== END 2025-01-23 23:59 | disposition home or self-care (01) ==
LOC: RAD 13:12
PROVIDERS: PCP Nurse Practitioner Family; Visit Provider Nurse Practitioner
DX: E04.1 Nontoxic single thyroid nodule (principal)
CPT/HCPCS: 76536

== ENCOUNTER 2025-01-28 10:25 | Outpatient (CLI) | payer MEDICARE, MEDICAID, SELFPAY ==
[2025-01-28 11:40] LABS: Free T4 (Free Thyroxine) 1.27 ng/dl (0.78-2.19)
[2025-01-28 11:53] LABS: Thyroid Stimulating Hormone 3.74 uIU/mL (0.465-4.68)
== END 2025-01-28 23:59 | disposition home or self-care (01) ==
LOC: LAB 10:26
PROVIDERS: PCP Nurse Practitioner Family; Visit Provider Nurse Practitioner
DX: E04.1 Nontoxic single thyroid nodule (principal); E03.9 Hypothyroidism, unspecified
CPT/HCPCS: 36415; 84439; 84443